=== PATIENT | male | born 1985 | race Caucasian/White ===

== ENCOUNTER → 2016-10-29 | Outpatient (CLI) | payer BC ==
[~2016-10-29] VITALS: Ht 193 cm; Wt 93.2 kg
[~2016-10-29] MED LIST: HYDROCODONE-AP1 EAC6 PO; HYSINGLA ER20 MG PO; HYSINGLA ER30 MG PO; KADIAN30 MG PO; NAPROSYN500 MG PO; PERCOCET 5-3251 EACH PO; WELLBUTRIN SR150 MG PO
--- NOTE | ~2016-10-29 | HPC ---
[facility] [place] [address] PAIN MANAGEMENT CONSULTATION Name: TAHIR SMITH Stacie Room #: REG Bird Treoj#: [id number] Admission: 10/29/16 Attend Phys: Brian Mcleod DO Discharge: Date of : 83 Report #: [id number] THIS REPORT FOR: //name// CC: [facility] physician/PCP Brian Mcleod The patient is a very pleasant 31-year-old gentleman being treated for left knee pain, chronic pain syndrome requiring complex medication management. Last seen in the pain clinic 09/03/2016. Chronic left knee issues, he had been scheduled for left knee surgery. Unfortunately, his has been diagnosed with breast cancer. This has put on hold the patient's immediate surgical issues. He has been diligently taking care of his , they have 4 children, age 10 through 17. 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 Urine drug screen at last visit was positive for hydrocodone, but also positive for methadone. I was unaware of the latter medication. We had a prolonged visit today reviewing current issues. When he first came to the clinic, he admitted that he had a very strong family history of narcotic habituation issues including both his father and brother having been incarcerated for federal narcotic infractions. Today, the patient notes "I am embarrassed to tell you that I have been on methadone now for several years." He states he has been stable on this medication, but with knee pain, he has had ongoing issues. He does continue to smoke and we counseled regarding this habituation issue and the fact that it is generally unhelpful. With the current issues of his 's cancer and likely surgery (currently she is undergoing radiation therapy) and the patient's pending knee surgery, they are trying to "quit tobacco together", essentially providing their own support group. I strongly encourage this. Today, he notes pain is about a 9/10, still on the left knee. 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 PHYSICAL EXAMINATION: Shows a 31-year-old gentleman, BMI is 25 kg/m2. Blood pressure 160/75, pulse 60, respirations are 18. Alert and oriented to person, place and time, judged to be a reasonable historian. Cranial nerves 2-12 are grossly intact. He does have some pupillary constriction. Notes no problems with constipation. Gait is good. No nystagmus is noted. He does have poor dentition. Rises from the chair using armrest. Gait is modestly antalgic favoring the left knee. No ballotable edema noted. ASSESSMENT: Chronic pain syndrome, history of opiate habituation, nicotine [facility] [address] [place] [address] PAIN MANAGEMENT CONSULTATION Name: TAHIR SMITH Room #: REG ED Trejo#: [id number] Admission: 10/29/16 Attend Phys: Brian Mcleod DO Discharge: Date of : 83 Report #: [id number] habituation, degenerative joint disease of the left knee, requiring complex medication management. RECOMMENDATIONS: Long discussion with the patient today about therapeutic option. Again, 1. Strongly recommend smoking cessation. 2. I have elected to continue current medication at least until surgery. Hysingla 30 mg 1 a day with hydrocodone 5/325 one tablet 3-4 times a day for breakthrough pain. Again, continue methadone through the methadone clinic unchanged. Our goal would be to wean off of hydrocodone after surgery. Greater than 25 minutes was spent with the patient with the majority of this time spent counseling the patient regarding current concerns and issues. We talked about anxiety and stress with his 's cancer diagnosis and young children. <ELECTRONICALLY SIGNED> By: Brian Mcleod DO 11/01/16 0750 [id number] 1034 Brian Mcleod DO /nt
[2016-10-29 07:57] VITALS: BP 162/75
== END ==
LOC: PAIN 07:03
DX: M25.562 Pain in left knee (principal); G89.4 Chronic pain syndrome

== ENCOUNTER → 2016-12-30 | Outpatient (CLI) | payer BC ==
[~2016-12-30] VITALS: Ht 193 cm; Wt 86.2 kg
[~2016-12-30] MED LIST changes: +METHADONE
--- NOTE | ~2016-12-30 | HPC ---
[facility] [address] [place] [address] PAIN MANAGEMENT CONSULTATION Name: TAHIR SMITH Stacie Room #: REG Bird Trejo#: [id number] Admission: 12/30/16 Attend Phys: Brian Mcleod DO Discharge: Date of : 84 Report #: [id number] THIS REPORT FOR: //name// CC: [facility] physician/PCP Brian Mcleod The patient is a 31-year-old gentleman being treated for complex medication management, history of opiate habituation, right knee DJD, requiring complex medication management. Last visit was 2 months ago. We continued the patient on his baseline medication, Cordelia 30 mg one a day, hydrocodone 5/325 one tablet 3-4 times a day, limit 100 tablets for 30 days. The patient has chronic pain in left knee. He has ACL tear and meniscal tear. He had been planning surgery, but this has been put on hold till June due to concurrent health issues with his . She has been diagnosed with metastatic breast cancer. She has completed radiation therapy. She is currently getting chemotherapy. They are planning surgery subsequent to the chemo. It sounds like her cancer may be metastatic. They have 4 young children, aged 10-17. Long discussion with the patient today about therapeutic options. He was seen from 09:10 to 09:35. Greater than 50% of the 25-minute visit was spent counseling the patient. He had prior been habituated to opiates, a fact we discussed at his original consultation. However, unbeknownst to me, has was beening maintained on methadone 70 mg a day at the [facility]. He had been forthright in noting that he had came from a family history rife with opiate concerns; his brother and father are actually in jail on opiate related charges. He had moved out of his home state and to get away from that influence. 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 He has been a dutiful and father. He returns to the pain clinic today, he notes he has continued to wean nicotine use, down to half a pack smoking a day. With the health issues with his and young family, he and his have started counseling. The patient notes that this has been helpful for him dealing with intercurrent stresses. Counseling has encouraged him with his smoking cessation as well. He notes pain in the left knee and low back, again, greater than 5 years, is 7/10 presently, worse on days when he has had a more aggressive activity at work. Otherwise, medications are continuing provide him sufficient analgesia to participate in activities of daily living. PHYSICAL EXAMINATION: Shows a 31-year-old gentleman, BMI is 23.1 kilograms per meter squared. Blood pressure is 103/68, pulse is 93, [place]ations [place] [address] [address] PAIN MANAGEMENT CONSULTATION Name: TAHIR SMITH Stacie Room #: REG Bird Trejo#: [id number] Admission: 12/30/16 Attend Phys: Brian Mcleod DO Discharge: Date of : 83 Report #: [id number] Alert and oriented to person, place, and time. Judged to be a reasonable historian. Rises from the chair using armrest, modestly antalgic gait. Left knee has a little ballottable edema. Ligaments are little bit lax anterior-posterior cruciate; medial and lateral collateral ligaments appear to be intact. Again, the patient has failed multiple injections including steroid and Synvisc injections from his orthopedist. 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 He is planning on getting the knee arthroscopy at that point. We reviewed the fact that opiate medications are being used to provide analgesia adequate to support activities of daily living, not attempting to achieve a specific pain score on the 0-10 Visual Analog Scale. The current opiate medications are providing sufficient analgesia to allow the patient to participate in activities of daily living. The patient is not exhibiting any aberrant behavior suggestive of drug diversion. The patient is not having any adverse reactions to medications. The patient is not suffering from daytime somnolence or mental acuity changes. The patient is managing opiate-induced constipation with appropriate yoiq-kin-apyoxqk agents and dietary considerations. The patient was counseled on concern for caution with operating a motor vehicle while using opiate medications. A physical exam was performed and the patient's functional status was evaluated. All patients with back pain were advised against the bed rest greater than 4 days and were advised to return to normal activities. Pain score assessment was noted and the treatment plan was reviewed with the patient. All current medications, both prescribed and OTC were reviewed and reconciled on the electronic medical record. Tobacco screening was accomplished and smoking cessation was advised when indicated. BMI was noted and diet/exercise modification was recommended for all patients following outside normal parameters. I reviewed with the patient today their responsibilities to safeguard prescription medications, reviewed their responsibility to utilize medications only as prescribed by the physician. They are to seek and receive pain medications only from 1 physician group ( [facility]). They are to use 1 pharmacy and keep the clinic informed if they change pharmacies. Their responsibilities include making followup visits in a timely fashion and to avoid abrupt discontinuation of medication usage. Their responsibilities further include bringing their medications (bottles from the pharmacy with residual pills) to the visit for possible confirmation of pill counts and the patient understands it is their responsibility to submit to random drug screens to ensure both that the medications prescribed are present, and that no other controlled substances are present. All prescriptions provided today were generated electronically. [facility] [address] [place] [address] PAIN MANAGEMENT CONSULTATION Name: TAHIR SMITH Stacie Room #: REG [facility]#: [id number] Admission: 12/30/16 Attend Phys: Brian Mcleod DO Discharge: Date of : 84 Report #: [id number] ASSESSMENT: Symptomatic degenerative joint disease, left knee in a gentleman with nicotine habituation and significant history of opiate habituation and tolerance. RECOMMENDATION: At last visit, we had reviewed his urine drug screen, which is positive for prescribed medications as well as methadone. This was when I first learned of his chronic methadone use. While he is at a supratherapeutic opiate load, considering the Cordelia 30 mg one a day and hydrocodone 5/325 one tablet 3-4 times a day, along with the methadone 70 mg daily, I remain hopeful that following knee surgery, we can start to wean his Cordelia and hydrocodone use. I will defer to his methadone clinic for ongoing management of his chronic opiate need. After a long discussion with the patient, we have elected to continue current medication unchanged. Follow up in 2 months for reevaluation. <ELECTRONICALLY SIGNED> By: Brian Mcleod DO 12/30/16 1349 0930 1338 Brian Mcleod DO /nt
[2016-12-30 09:10] VITALS: BP 103/68
== END | disposition home or self-care (01) ==
LOC: PAIN 12-24 06:52
DX: M17.11 Unilateral primary osteoarthritis, right knee (principal); F11.20 Opioid dependence, uncomplicated; F17.210 Nicotine dependence, cigarettes, uncomplicated

== ENCOUNTER → 2017-02-18 | Outpatient (CLI) | payer BC ==
[~2017-02-18] VITALS: Ht 193 cm; Wt 80.3 kg
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
[2017-02-18 09:57] VITALS: BP 149/93
== END | disposition home or self-care (01) ==
LOC: PAIN 07:16
DX: Z76.0 Encounter for issue of repeat prescription (principal); M25.562 Pain in left knee; G89.29 Other chronic pain; M17.12 Unilateral primary osteoarthritis, left knee; Z79.891 Long term (current) use of opiate analgesic; F17.210 Nicotine dependence, cigarettes, uncomplicated

== ENCOUNTER → 2017-04-14 | Outpatient (CLI) | payer BC ==
[~2017-04-14] VITALS: Ht 193 cm; Wt 83.7 kg
[~2017-04-14] MED LIST changes: +METHADONE PO
--- NOTE | ~2017-04-14 | HPC ---
[facility] [address] [address] PAIN MANAGEMENT CONSULTATION Name: TAHIR SMITH Stacie Room #: REG Bird Trejo#: [id number] Admission: 04/14/17 Attend Phys: Brian Mcleod DO Discharge: Date of : 83 Report #: [id number] THIS REPORT FOR: //name// CC: [facility] physician/PCP Brian Mcleod DATE OF SERVICE: 04/14/2017 DATE OF SERVICE: 04/14/2017 HISTORY OF PRESENT ILLNESS: The patient is a 31-year-old gentleman being treated for high risk complex medication management, DJD bilateral knees, left greater than right, with a history of nicotine habituation and opiate habituation and tolerance. Last visit, 02/18/2017, we had continued the patient at methadone clinic. He is receiving 70 mg a day, trying to wean down. I had started the patient on Cordelia 30 mg 1 a day and hydrocodone 5/325 one tablet 3-4 times a day, limit 100 tablets for 30 days, planning to wean this after left knee surgery, which has been put on hold due to the patient's 's cancer. 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 There are for young children. Unfortunately, today, he tells me through a tearful interview that his has metastatic breast cancer and he understands that she will likely not live long. We reviewed his social support services and circumstances, he does have a good community relationship with friends and yazdanism community in town. Both he and his come from out of state. He states his has a sister and brother who are not terribly involved, out of state. Again, the patient's family has significant psychosocial issues, strong family history of alcohol and drug abuse. He moved to [place] to get away from those influences. He remains functional, states medications are helping with pain. Rates his pain at 5 on the VAS. Again, ACL tear of the left knee surgery "on hold" while he helps his . 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 He does have a little laxity in the ligaments in the knee, but today, no ballotable edema, moderately antalgic gait. We reviewed the fact that opiate medications are being used to provide analgesia adequate to support activities of daily living, not attempting to achieve a specific pain score on the 0-10 Visual Analog Scale. The current opiate medications are providing sufficient analgesia to allow the patient to participate in activities of daily living. The patient is not exhibiting any aberrant behavior suggestive of drug diversion. The patient is not having any adverse reactions to medications. The patient is not suffering from daytime [facility] [address] [place] [address] PAIN MANAGEMENT CONSULTATION Name: TAHIR SMITH [facility] #[id number] Admission: 04/14/17 Attend Phys: Brian Mcleod DO Discharge: Date of : 83 Report #: [id number] somnolence or mental acuity changes. The patient is managing opiate-induced constipation with appropriate aceb-xyq-isdattl agents and dietary considerations. The patient was counseled on concern for caution with operating a motor vehicle while using opiate medications. A physical exam was performed and the patient's functional status was evaluated. All patients with back pain were advised against the bed rest greater than 4 days and were advised to return to normal activities. Pain score assessment was noted and the treatment plan was reviewed with the patient. All current medications, both prescribed and OTC were reviewed and reconciled on the electronic medical record. Tobacco screening was accomplished and smoking cessation was advised when indicated. BMI was noted and diet/exercise modification was recommended for all patients following outside normal parameters. I reviewed with the patient today their responsibilities to safeguard prescription medications, reviewed their responsibility to utilize medications only as prescribed by the physician. They are to seek and receive pain medications only from 1 physician group ( [facility]). They are to use 1 pharmacy and keep the clinic informed if they change pharmacies. Their responsibilities include making followup visits in a timely fashion and to avoid abrupt discontinuation of medication usage. Their responsibilities further include bringing their medications (bottles from the pharmacy with residual pills) to the visit for possible confirmation of pill counts and the patient understands it is their responsibility to submit to random drug screens to ensure both that the medications prescribed are present, and that no other controlled substances are present. All prescriptions provided today were generated electronically. ASSESSMENT: Degenerative joint disease, bilateral knees, left greater than right in a patient with opiate habituation history, requiring high risk complex medication management. RECOMMENDATION: I, again, discussed with the patient today about maintaining sobriety, being strong for his 4 children and . We elected to continue Cordelia 30 mg 1 a day, hydrocodone 5/325 100 tablets for 30 days. Follow up in 2 months for reevaluation, earlier if needed. I told him we can drain the knee if he gets acute swelling. <ELECTRONICALLY SIGNED> By: Brian Mcleod DO 04/15/17 1036 1224 0941 Brian Mcleod DO /nt
[2017-04-14 10:15] VITALS: BP 135/88
== END | disposition home or self-care (01) ==
LOC: PAIN 06:30
DX: M17.0 Bilateral primary osteoarthritis of knee (principal); F11.20 Opioid dependence, uncomplicated; F17.200 Nicotine dependence, unspecified, uncomplicated

== ENCOUNTER → 2017-07-08 | Outpatient (CLI) | payer BC ==
[~2017-07-08] VITALS: Ht 193 cm; Wt 86.6 kg
[~2017-07-08] MED LIST changes: +CYMBALTA30 MG PO; +NABUMETONE 750750 M1 PO; +TRAZODONE HCL100 MG PO
--- NOTE | ~2017-07-08 | HPC ---
[facility] [place] [address] PAIN MANAGEMENT CONSULTATION Name: TAHIR SMITH Stacie Room #: REG [facility] Maya#: [id number] Admission: 07/08/17 Attend Phys: Brian Mcleod DO Discharge: Date of : 84 Report #: [id number] THIS REPORT FOR: //name// CC: KRUNAL physician/PCP Brian Mcleod PAIN CLINIC NOTE SUBJECTIVE: The patient is a 32-year-old gentleman being treated for chronic left knee pain requiring high risk complex medication management. The patient was last seen in the pain clinic 04/14/2017, continued on Cordelia 30 mg 1 a day, hydrocodone 5/325 one tablet 3-4 a day, limit 100 tablets for 30 days. The patient has prior been habituated to opiates, has been attending the [facility], had been at 70 mg a day, he is now weaning down. He is down to 40 mg. Last urine drug screen 09/03/2016 was positive for prescribed medications. He returns to the pain clinic today noting pain is continuing. He works at [employer]. They have given him some work restrictions due to his knee. They are accommodating his disability, but he is anxious to move forward with ACL repair. This has been planned with Dr. Marquez in [place], likely in September. Surgery is somewhat had been put on hold due to the fact that the patient's has been diagnosed with breast cancer. They have 4 children, ages 17 to 11. The patient as one would expect is distraught with this. He is taking his responsibility to his family and his children very seriously. He is working hard at maintaining sobriety and weaning from methadone. He is anxious to move forward with surgery. Again, however, his primary concern at this point is caring for his . He notes pain as 7 on a VAS, sharp, stabbing, exacerbated with movement. Pain is centered in the left knee. He is otherwise generally a healthy gentleman. He continues to smoke daily and was counseled regarding this. He tells me his had purchased for him an electronic cigarette and I strongly encouraged him to quit smoking as well. We talked about nicotine use and habituation. I encouraged him to rotate from cigarettes to the e-cigarette and then we can gradually wean nicotine consumption. PHYSICAL EXAMINATION: Otherwise unchanged, pleasant 32-year-old gentleman, tearful throughout our interview. BMI is 23.3 kilograms per meter squared. Blood pressure is modestly elevated 135/91, pulse 85, respirations 16. Alert, oriented to person, place and time, judged to [place] [address] PAIN MANAGEMENT CONSULTATION Name: TAHIR SMITH Stacie Room #: [facility] [id number] Admission: 07/08/17 Attend Phys: Brian Mcleod DO Discharge: Date of : 84 Report #: [id number] from chair using armrest, modestly antalgic gait. Left knee does have a lax AC ligaments, tenderness with movement, nominal edema. We reviewed the fact that opiate medications are being used to provide analgesia adequate to support activities of daily living, not attempting to achieve a specific pain score on the 0-10 Visual Analog Scale. The current opiate medications are providing sufficient analgesia to allow the patient to participate in activities of daily living. The patient is not exhibiting any aberrant behavior suggestive of drug diversion. The patient is not having any adverse reactions to medications. The patient is not suffering from daytime somnolence or mental acuity changes. The patient is managing opiate-induced constipation with appropriate cgeu-tda-vyoevyu agents and dietary considerations. The patient was counseled on concern for caution with operating a motor vehicle while using opiate medications. A physical exam was performed and the patient's functional status was evaluated. All patients with back pain were advised against the bed rest greater than 4 days and were advised to return to normal activities. Pain score assessment was noted and the treatment plan was reviewed with the patient. All current medications, both prescribed and OTC were reviewed and reconciled on the electronic medical record. Tobacco screening was accomplished and smoking cessation was advised when indicated. BMI was noted and diet/exercise modification was recommended for all patients following outside normal parameters. I reviewed with the patient today their responsibilities to safeguard prescription medications, reviewed their responsibility to utilize medications only as prescribed by the physician. They are to seek and receive pain medications only from 1 physician group ( [facility]). They are to use 1 pharmacy and keep the clinic informed if they change pharmacies. Their responsibilities include making followup visits in a timely fashion and to avoid abrupt discontinuation of medication usage. Their responsibilities further include bringing their medications (bottles from the pharmacy with residual pills) to the visit for possible confirmation of pill counts and the patient understands it is their responsibility to submit to random drug screens to ensure both that the medications prescribed are present, and that no other controlled substances are present. All prescriptions provided today were generated electronically. ASSESSMENT: Chronic left knee pain secondary to internal derangement, opiate habituation and tolerance. RECOMMENDATIONS: Continue current medication as noted above, encouraged methadone wean from the [facility]. Buccal drug swab was accomplished [address] [address] PAIN MANAGEMENT CONSULTATION Name: TAHIR SMITH Room #: [facility]Darryl#: [id number] Admission: 07/08/17 Attend Phys: Brian Mcleod DO Discharge: Date of : 84 Report #: [id number] today. No aberrant behavior suggestive of drug diversion, simply complying with opiate consent to treat contract. <ELECTRONICALLY SIGNED> By: Brian Mcleod DO 07/21/17 0913 [id number] 0410 Brian Mcleod DO /nt
[2017-07-08 13:08] VITALS: BP 135/91
== END ==
LOC: PAIN 07:47
DX: M23.8X2 Other internal derangements of left knee (principal); F11.20 Opioid dependence, uncomplicated; E87.8 Other disorders of electrolyte and fluid balance, not elsewhere classified; Z79.899 Other long term (current) drug therapy

== ENCOUNTER → 2017-09-01 | Outpatient (CLI) | payer BC ==
[~2017-09-01] VITALS: Ht 182.9 cm; Wt 90.9 kg
--- NOTE | ~2017-09-01 | HPC ---
[facility] [address] [address] [address] PAIN MANAGEMENT CONSULTATION Name: TAHIR SMITH Stacie [facility] [id number] Admission: 09/01/17 Attend Phys: Brian Mcleod DO Discharge: Date of : 84 Report #: [id number] THIS REPORT FOR: //name// CC: KRUNAL physician/PCP Brian Mcleod The patient is a pleasant, yet tragic 32-year-old gentleman, typically treated for DJD, left knee; history of nicotine habituation and opiate abuse, requiring complex medication management. Last seen in pain clinic 07/08/2017. The patient has a long family history of opiate habituation and use. He actually left [facility] ([place]?) to get away from family issues. His brother and father are both in [place]p for narcotics related felonies. The patient moved to [place]. 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 He is . He has 2 young children. Unfortunately, his has widespread metastatic cancer. He has been stable on Cordelia 30 mg, hydrocodone 5/325, 100 tablets for 30 days. He has been pending ACL repair by Dr. Daniel, orthopedic surgeon in [place]. Unfortunately, with his 's acute illness, this has been put on hold. There is an error in my dictation from 07/08/2017. He had been stable at the methadone clinic at 70 mg methadone a day. He was weaning down. He was down to 50 mg at last visit (the chart says 40 mg). Today, he has weaned further. He is down now from 50 mg to 45 mg. Urine drug screen on 09/03/2016 was positive for prescribed medications. He returns to pain clinic today. He had a prolonged visit, he was seen from 9:50-10:20. He is tearful. He showed me a picture of his . Picture is obviously taken in "better days." Again, he has 2 teenage children, I believe 11 and 17 years of age. He is trying to maintain a functional home life with them. His is at home on hospice. He tells me that their furniture mover helper comes to the house weekly, and he has a good communication skill set. The patient is able to discuss his anxiety and depression with the furniture mover helper. From a pain standpoint, he notes pain is unchanged, 5-6 on a VAS due to a traumatic issues in the left knee. He continues to smoke, was counseled regarding same. BMI is 27.2 kilograms per meter squared. Vital signs are stable as noted in the EMR. He has not fallen in the last 3 months. Medicine list was reconciled. Functional assessment tool is 43/70. ASSESSMENT: Symptomatic degenerative joint disease, anterior cruciate ligament tear, left knee, nicotine habituation, chronic opiate use habituation and complex medication management along with situational depression. RECOMMENDATIONS: I had a long discussion with the patient today. Ultimately, we elected to start low dose Cymbalta 30 mg a day. Continue Cordelia 30 mg 1 a day, hydrocodone 5/325, limit 100 tablets for [address] [address] PAIN MANAGEMENT CONSULTATION Name: TAHIR SMITH Stacie Room #: REG [facility] Maya#: [id number] Admission: 09/01/17 Attend Phys: Brian Mcleod, Discharge: Date of : 84 Report #: [id number] Buccal swab was accomplished today. No aberrant behavior suggestive of drug diversion, simply complying with opiate consent to treat contract from about a year since her last random drug screen. It should be positive for morphine, hydrocodone, methadone. No other opiates or controlled substances should be there. <ELECTRONICALLY SIGNED> By: Brian Mcleod DO 09/07/17 0725 0704 1233 Brian Mcleod DO /nt
[2017-09-01 09:53] VITALS: BP 134/75
== END ==
LOC: PAIN 07:08
DX: M17.12 Unilateral primary osteoarthritis, left knee (principal); F11.90 Opioid use, unspecified, uncomplicated; F32.9 Major depressive disorder, single episode, unspecified; Z79.899 Other long term (current) drug therapy

== ENCOUNTER → 2017-10-31 | Outpatient (CLI) | payer BC ==
[~2017-10-31] VITALS: Ht 182.9 cm; Wt 91.1 kg
[~2017-10-31] MED LIST changes: -TRAZODONE HCL100 MG PO
--- NOTE | ~2017-10-31 | HPC ---
[facility] [place] [address] [place] [address] PAIN MANAGEMENT CONSULTATION Name: LUISTAHIR Stacie Room #: REG [facility] Trejo#: [id number] Admission: 10/31/17 Attend Phys: Brian Mcleod DO Discharge: Date of : 84 Report #: [id number] THIS REPORT FOR: //name// CC: KRUNAL physician/PCP Brian Mcleod The patient is a pleasant 32-year-old gentleman, he has a chronic opiate habituation by history, acute left knee DJD, requires surgical replacement. His medical history is compounded by the fact that his has metastatic cancer. They have 3 children, youngest being 11-year-old daughter and then 2 other teenage children. Last seen in the pain clinic on 09/01/2017, continued on baseline medication including Cordelia 30 mg 1 a day and hydrocodone 5/325 one tablet up to 4 times a day for breakthrough pain. The patient has been maintained through the Meth[facility]one Clinic, started out at a high dose, I think around 70 mg, last visit he was down to 45 mg, he is now down to 40 mg. He returns to pain clinic today. He just got back last week [facility] [place]. Apparently, they were doing some targeted biologic cancer drugs. He states his is now in a usp facility in [place]. 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 He notes his current pain is a 7 on a VAS. Again, he has DJD in the left knee and has been scheduled off and on for surgery with Dr. Daniel for ACL repair. Again, with his 's current illness, this has "been put on hold." PHYSICAL EXAMINATION: Otherwise, shows a pleasant 32-year-old gentleman, BMI is 27.2 kg/m2. Vital signs are stable as noted in the EMR. Subjective pain score is 7 on a VAS. He continues to smoke and was counseled regarding same. His opiate consent to treat contracted was signed on 12/30/2016. Last random drug screen on 09/01/2017, was negative for morphine and hydrocodone, he was about 10 days late. His prior office visit had been on July 08. Physical exam otherwise is unchanged, alert and oriented to person, place and time, judged to be a reasonable historian. He has a modestly antalgic gait favoring the left knee. Left knee does have a positive drawer test. Modest edema. He wears a brace when he is at work; however, during the day, he does not use the knee immobilization device. We reviewed the fact that opiate medications are being used to provide analgesia adequate to support activities of daily living, not attempting to achieve a specific pain score on the 0-10 Visual Analog Scale. The current opiate medications are providing sufficient analgesia to allow the patient to [address] [address] PAIN MANAGEMENT CONSULTATION Name: TAHIR SMITH Room #: REG [facility] Trejo#: [id number] Admission: 10/31/17 Attend Phys: Brian Mcleod DO Discharge: Date of : 84 Report #: [id number] participate in activities of daily living. The patient is not exhibiting any aberrant behavior suggestive of drug diversion. The patient is not having any adverse reactions to medications. The patient is not suffering from daytime somnolence or mental acuity changes. The patient is managing opiate-induced constipation with appropriate qdkc-alf-nfbwifq agents and dietary considerations. The patient was counseled on concern for caution with operating a motor vehicle while using opiate medications. A physical exam was performed and the patient's functional status was evaluated. All patients with back pain were advised against the bed rest greater than 4 days and were advised to return to normal activities. Pain score assessment was noted and the treatment plan was reviewed with the patient. All current medications, both prescribed and OTC were reviewed and reconciled on the electronic medical record. Tobacco screening was accomplished and smoking cessation was advised when indicated. BMI was noted and diet/exercise modification was recommended for all patients following outside normal parameters. I reviewed with the patient today their responsibilities to safeguard prescription medications, reviewed their responsibility to utilize medications only as prescribed by the physician. They are to seek and receive pain medications only from 1 physician group ( [facility]). They are to use 1 pharmacy and keep the clinic informed if they change pharmacies. Their responsibilities include making followup visits in a timely fashion and to avoid abrupt discontinuation of medication usage. Their responsibilities further include bringing their medications (bottles from the pharmacy with residual pills) to the visit for possible confirmation of pill counts and the patient understands it is their responsibility to submit to random drug screens to ensure both that the medications prescribed are present, and that no other controlled substances are present. All prescriptions provided today were generated electronically. ASSESSMENT: Left knee degenerative joint disease, chronic opiate habituation and tolerance by history. RECOMMENDATIONS: Continue current medication including hydrocodone 5/325 up to 4 a day for breakthrough pain, Cordelia, morphine extended release 30 mg 1 a day. I have taken the liberty of writing for 2 months of current medication. I asked the patient to return in 7 weeks, we will follow up at that time, likely repeat the random drug screen. <ELECTRONICALLY SIGNED> By: Brian Mcleod DO 11/02/17 0819 1202 1416 Brian Mcleod DO /alison
[2017-10-31 10:11] VITALS: BP 137/70
== END ==
LOC: PAIN 07:00
DX: M17.12 Unilateral primary osteoarthritis, left knee (principal); F11.90 Opioid use, unspecified, uncomplicated

== ENCOUNTER → 2017-12-16 | Outpatient (CLI) | payer BC ==
[~2017-12-16] VITALS: Ht 182.9 cm; Wt 89.6 kg
[~2017-12-16] MED LIST changes: +TRAZODONE HCL100 MG PO
--- NOTE | ~2017-12-16 | HPC ---
[facility] [place] [address] [place] [address] PAIN MANAGEMENT CONSULTATION Name: TAHIR SMITH Stacie Room #: REG [facility] Maya#: [id number] Admission: 12/16/17 Attend Phys: Brian Mcleod DO Discharge: Date of : 83 Report #: [id number] THIS REPORT FOR: //name// CC: KRUNAL physician/PCP Brian Mcleod HISTORY OF PRESENT ILLNESS: The patient is a very pleasant 32-year-old gentleman. I have treated him for chronic left knee pain. Status post left knee reconstruction, he does have an ACL tear and meniscus damage. He has been scheduled off and on for surgery for definitive repair of the knee. When I initially saw him in consultation in April 2016, it was noteworthy that he had a strong family history of alcohol habituation and that his brother and father have both been incarcerated for drug possession and sale. He had moved away from [place] to get away from that problematic environment. 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 He is and has been an attentive father of 4 children. He has been managed with Cordelia 30 mg 1 a day and hydrocodone 5/325 up to 4 a day. Unbeknownst to me, initially, he was on a methadone maintenance program, actually it is 70 mg of methadone a day. This has been weaned down to 40 mg a day. His definitive knee surgery had been put on hold about a year ago due to his having cancer. Tragically, the patient tells me today that his 4 days ago. She had wanted to pass in the near to her mother, family had journey to [place]. The patient just drove back today. He is understandably grieving. Fortunately, his had been placed on hospice care. The patient and his children have been in contact with a grief counselor and he intends to continue to follow through with counseling. We had a prolonged visit today from approximately 11:22-11:50. Greater than 50% of time spent counseling the patient. He notes the leg continues to be problematic. He is actually unable to give me a pain score presently. He states he "feels numb." He has continued to smoke and has been counseled regarding same. He has cut down though remains an everyday smoker. He is desirous of moving forward to getting his knee repaired perhaps in the fall. PHYSICAL EXAMINATION: [facility] [address] [place] [address] PAIN MANAGEMENT CONSULTATION Name: LUISTAHIR Stacie Room #: REG ED Trejo#: [id number] Admission: 12/16/17 Attend Phys: Brian Mcleod DO Discharge: Date of : 83 Report #: [id number] GENERAL: Shows a 32-year-old gentleman. VITAL SIGNS: BMI is 26.8 kg per meter squared. Vital signs are stable as noted in the EMR. NEUROLOGICAL: He is alert and oriented, though affect is a little flat. MUSCULOSKELETAL: Does have a positive drawers test left knee. He is not wearing his brace today. There is a little edema of the knee. He had been driving the past 8 hours. We reviewed the fact that opiate medications are being used to provide analgesia adequate to support activities of daily living, not attempting to achieve a specific pain score on the 0-10 Visual Analog Scale. The current opiate medications are providing sufficient analgesia to allow the patient to participate in activities of daily living. The patient is not exhibiting any aberrant behavior suggestive of drug diversion. The patient is not having any adverse reactions to medications. The patient is not suffering from daytime somnolence or mental acuity changes. The patient is managing opiate-induced constipation with appropriate rsqc-jir-wglbpss agents and dietary considerations. The patient was counseled on concern for caution with operating a motor vehicle while using opiate medications. A physical exam was performed and the patient's functional status was evaluated. All patients with back pain were advised against the bed rest greater than 4 days and were advised to return to normal activities. Pain score assessment was noted and the treatment plan was reviewed with the patient. All current medications, both prescribed and OTC were reviewed and reconciled on the electronic medical record. Tobacco screening was accomplished and smoking cessation was advised when indicated. BMI was noted and diet/exercise modification was recommended for all patients following outside normal parameters. I reviewed with the patient today their responsibilities to safeguard prescription medications, reviewed their responsibility to utilize medications only as prescribed by the physician. They are to seek and receive pain medications only from 1 physician group ( [facility]). They are to use 1 pharmacy and keep the clinic informed if they change pharmacies. Their responsibilities include making followup visits in a timely fashion and to avoid abrupt discontinuation of medication usage. Their responsibilities further include bringing their medications (bottles from the pharmacy with residual pills) to the visit for possible confirmation of pill counts and the patient understands it is their responsibility to submit to random drug screens to ensure both that the medications prescribed are present, and that no other controlled substances are present. All prescriptions provided today were generated electronically. ASSESSMENT: Left knee pain, status post prior reconstruction with current anterior cruciate ligament tear and meniscus damage requiring complex medication [facility] [address] [place] [address] PAIN MANAGEMENT CONSULTATION Name: TAHIR SMITH Room #: JOSE Trejo#: [id number] Admission: 12/16/17 Attend Phys: Brian Mcleod DO Discharge: Date of : 83 Report #: [id number] management in a gentleman with history of opiate habituation. Methadone [facility]. He is currently on FMLA from [employer] due to his 's health concerns. Planning on returning to work after his 's . Planning on again, hopefully getting his surgical repair with Dr. Daniel in the fall. RECOMMENDATIONS: 1. Long discussion with the patient today. He had prior been on trazodone 100 mg at bedtime from his psychiatrist. So, he has been seeing a grief counselor. He had unfortunately neglected to get his trazodone refilled. I will renew that today 100 mg 1 tablet at bedtime, 30 tablets with two refills. Strongly encouraged him to continue following up with his grief counselor. 2. We will renew his current medication including Cordelia 30 mg 1 a day and hydrocodone 5/325 at 4 a day. I have taken the liberty of writing for 2 months of current medication. We will have him follow up with Dr. Manuel Robert. With Dr. Robert's palliative care background, I think he would be caring position to help the patient through surgery. He understands that our goal will be to wean off of morphine and hydrocodone. Hopefully, continue to wean methadone with the [facility] over time. Again, counseled regarding smoking cessation. Discharged in good and stable condition after prolonged visit. <ELECTRONICALLY SIGNED> By: Brian Mcleod DO 12/19/17 0709 1221 2045 Brian Mcleod DO /nt
[2017-12-16 11:15] VITALS: BP 116/74
== END ==
LOC: PAIN 07:29
DX: G89.29 Other chronic pain (principal); M25.562 Pain in left knee; Z79.899 Other long term (current) drug therapy

== ENCOUNTER → 2018-02-10 | Outpatient (CLI) | payer BC ==
[~2018-02-10] VITALS: Ht 182.9 cm; Wt 88.9 kg
[2018-02-10 14:44] VITALS: BP 120/79
== END ==
LOC: PAIN 06:37
DX: M25.562 Pain in left knee (principal); F17.200 Nicotine dependence, unspecified, uncomplicated; Z79.891 Long term (current) use of opiate analgesic; Z79.899 Other long term (current) drug therapy

== ENCOUNTER → 2018-04-12 | Outpatient (CLI) | payer BC ==
[~2018-04-12] VITALS: Ht 182.9 cm; Wt 94.4 kg
--- NOTE | ~2018-04-12 | HPC ---
[facility] [address] [place] [address] PAIN MANAGEMENT CONSULTATION Name: TAHIR SMITH Room #: REG [facility] Maya#: [id number] Admission: 04/12/18 Attend Phys: Keven Barragan MD Discharge: Date of : 83 Report #: [id number] THIS REPORT FOR: //name// CC: KRUNAL physician/PCP Keven Barragan DATE OF SERVICE: 04/13/2018 FOLLOWUP COMPLAINT: Here for medication renewal. Plans to have left knee surgery. in 11/2017. FOLLOWUP HISTORY: The patient is a 32-year-old gentleman who has been followed in the Pain Clinic. He has chronic pain. He does have pain in his left knee. He is status post knee reconstruction. He does have continued pain and discomfort. He has been recovering from his 's recent . He moved here from [place] to get away from the family environment. 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 He has four children. He is . His unfortunately recently. He is left to raise the children alone. He still is grieving. The patient's in November. He feels that his current medications of methadone and hydrocodone continue to be helpful. He has returned today for renewal of his medications. He states that these medications are not clouding his judgment. He is able to think clearly. He is able to drive and conduct activities of daily living without interference from the medications. ALLERGIES: No known drug allergies. MEDICATIONS: Trazodone 100 mg at bedtime, Naprosyn 500 mg b.i.d., morphine sulfate 30 mg, hydrocodone 5/325 one tablet 4 times daily as needed. Methadone is down to 30 mg daily from 70. Wellbutrin 150 mg. PQRS: 1. History of osteoarthritis involving the left knee. The patient is not being treated for rheumatoid arthritis. 2. Height 6 feet 0 inches, weight 208 pounds, BMI is 28.2. 3. Vital signs: Blood pressure 117/68, pulse 77, respiratory rate 16, room air saturation 98%. 4. Pain intensity 5-6 today, raises to the level of 8-9 at times. 5. Fall risk. The patient has not fallen in the last 3 months. 6. Blood thinner. The patient is not on a blood thinning medication. 7. Hypertension. The patient is not being treated for hypertension. 8. Opioid therapy greater than 6 weeks. The patient gets his medication from one source, the Pain Clinic. 9. Risk assessment tool with the use of opioid medications, 0. 10. Functional assessment tool. 11. Recreational drug use. The patient [place] [address] PAIN MANAGEMENT CONSULTATION Name: TAHIR SMITH Room #: REG ED Trejo#: [id number] Admission: 04/12/18 Attend Phys: Keven Barragan MD Discharge: Date of : 83 Report #: [id number] this juncture. 12. Tobacco: The patient has smoked for the last 25 years. He is trying to decrease his tobacco use. I spoke with the patient about 3 minutes regarding the benefits of cessation of tobacco. 13. Alcohol: The patient denies frequent use of alcohol. PHYSICAL EXAMINATION: GENERAL: The patient is a well-developed, well-nourished white male. Appears his stated age. He is alert and oriented x 3. Affect is appropriate. He feels somewhat depressed when thinking about his . HEENT: Normocephalic, atraumatic. Extraocular muscles intact. Sclerae nonicteric. Mucous membranes are moist. NECK: Good range of motion without bruits or adenopathy. HEART: Regular rate. S1, S2. ABDOMEN: Nontender. Bowel sounds present. LUNGS: Clear to auscultation without rhonchi or rales. EXTREMITIES: Upper extremity muscle strength is judged to be 5/5 for the major muscle groups. MUSCULOSKELETAL: Without significant scoliosis, kyphosis, or lordosis. He does have some pain and discomfort radiating down into the left knee. Muscle strength overall in the major muscle groups in the lower extremity is 5/5. IMPRESSION: 1. Chronic pain secondary to left knee with prior reconstruction with current anterior cruciate ligament tear in the meniscus damaged, requiring complex medication management. 2. History of opioid habitation. Methadone maintenance from the Pain Clinic. 3. The patient has been on FMLA from [place] secondary to his 's . He has four children, age 16, age 15, age 12, and age 11; three boys, one girl. The patient's recently . 4. Surgical repair with Dr. Daniel this fall. RECOMMENDATIONS: We discussed treatment options with the patient. We will continue with his current medical regimen. A script for his medications has been renewed. The patient states that he keeps his medications in a guarded area. He does have children. He feels that these medications are helpful and enable him to engage in activities of daily living. He is taking the medication as prescribed. We will renew his medications. A script for Cordelia 30 mg daily, [place] 5/325 one p.o. q.i.d., Naprosyn 500 mg b.i.d., trazodone 100 mg at bedtime has been written. [address] [address] PAIN MANAGEMENT CONSULTATION Name: TAHIR MSITH Room #: [facility] Maya#: [id number] Admission: 04/12/18 Attend Phys: Keven Barragan MD Discharge: Date of : 83 Report #: [id number] We would like to thank you for letting us participate in his care. We hope he continues to improve. <ELECTRONICALLY SIGNED> By: Keven Barragan MD 05/01/18 1124 [id number] Keven Barragan MD /nt
[2018-04-12 11:01] VITALS: BP 117/68
== END ==
LOC: PAIN 09:41
DX: M25.562 Pain in left knee (principal); Z79.899 Other long term (current) drug therapy

== ENCOUNTER → 2018-06-02 | Outpatient (CLI) | payer BC ==
[~2018-06-02] VITALS: Ht 182.9 cm; Wt 96.4 kg
[~2018-06-02] MED LIST changes: +METHADONE HCL 110 M1 PO
--- NOTE | ~2018-06-02 | HPC ---
[facility] [place] [address] PAIN MANAGEMENT CONSULTATION Name: TAHIR SMITH Room #: REG [facility].#: [id number] Admission: 06/02/18 Attend Phys: Marga Paiz Discharge: Date of : 83 Report #: [id number] THIS REPORT FOR: //name// CC: Marga Paiz [facility] physician/PCP Chon Barragan MD CHIEF COMPLAINT: Chronic pain, left knee, status post knee reconstruction. HISTORY OF PRESENT ILLNESS: The patient returns today for followup of his pain medication. He tells me that his pain is 6/10, mostly in the left knee, worse with walking, kneeling, standing, which he has to do at his job at the [employer]. He tells me that he has been weaning off his methadone, which he gets from the [facility]. He is on 40 mg a day of that. We prescribed Cordelia 30 mg once a day and [place] 5/325, which he takes up to 4 times a day. The patient tells me he is also off his trazodone and Wellbutrin. He is working very diligently to decrease these medicines. His goal is to have his ACL repaired sometime next year. He is waiting for insurance settlement from his 's passing and also a bonus from work, so he can put that aside from when he is off work since he has 4 children at home and he will need care to help with himself and them while he is recovering from his surgery. The patient has a plan definitely in place to decrease his methadone further and to be totally off of that before this surgery. He is also as I said off his Wellbutrin and his trazodone. He is very alert, positive attitude today, working towards these goals. The patient is here requesting his refills. ALLERGIES: No known drug allergies. CURRENT LIST OF MEDICATIONS: methadone 40 mg daily, Cordelia 30 mg daily, hydrocodone 5/325 up to 4 a day, naproxen 500 mg twice a day. PQRS: 1. Osteoarthritis of his left knee, not being treated for rheumatoid arthritis. 2. Height is 6 feet, weight is 212, BMI is 28.8. 3. Vital signs: Blood pressure 125/105, pulse is 68, respirations 14, oxygen sat is 97%. 4. Pain score is 6/10. 5. Denies dizziness. Does not need help walking or standing and has not fallen in the last 3 months. 6. No blood thinners and no hypertension, thus blood pressure slightly elevated today. 7. Opioid therapy is greater than 6 weeks, an opioid signed contract on the chart. 8. His risk assessment tool is low. Functional assessment tool is 43/70. 9. He has used recreational drug use in the past, but not in the last 3 months. He does smoke currently every day, about a half a pack and does not use alcohol. [address] [address] PAIN MANAGEMENT CONSULTATION Name: LUISTAHIR CORREIA Stacie Room #: JOSE Trejo#: [id number] Admission: 06/02/18 Attend Phys: Marga Paiz Discharge: Date of : 83 Report #: [id number] We did check the [place] prescription monitoring system. He is filling appropriate timeframe on his hydrocodone and his morphine. Methadone is not reportable through where he gets his medicine, so that is not on there. The patient tells me he safeguards his medicine since he does have children in the house: PHYSICAL EXAMINATION: GENERAL: The patient is a well-developed, well-nourished white male who appears his stated age. He is alert and oriented x 3. Affect is appropriate. He feels more positive in his outlook than he has in a long time he tells me. HEENT: Normocephalic, atraumatic. Extraocular muscles are intact. Mucous membranes are moist. MUSCULOSKELETAL: Upper extremity strength is judged to be 5/5 on major muscle groups. Lower extremity, he does have pain radiating from his left knee down. Muscle strength overall in his lower extremity is to be 5/5. He does not have scoliosis, kyphosis or lordosis. IMPRESSION: 1. Chronic pain secondary to left knee with prior reconstruction, current anterior cruciate ligament tear in the meniscus requiring complex medical management. 2. History of opioid habituation, [facility]. We reviewed the fact that opiate medications are being used to provide analgesia adequate to support activities of daily living, not attempting to achieve a specific pain score on the 0-10 Visual Analog Scale. The current opiate medications are providing sufficient analgesia to allow the patient to participate in activities of daily living. The patient is not exhibiting any aberrant behavior suggestive of drug diversion. The patient is not having any adverse reactions to medications. The patient is not suffering from daytime somnolence or mental acuity changes. The patient is managing opiate-induced constipation with appropriate yllw-qrd-xgsvqlb agents and dietary considerations. The patient was counseled on concern for caution with operating a motor vehicle while using opiate medications. A physical exam was performed and the patient's functional status was evaluated. All patients with back pain were advised against the bed rest greater than 4 days and were advised to return to normal activities. Pain score assessment was noted and the treatment plan was reviewed with the patient. All current medications, both prescribed and OTC were reviewed and reconciled on the electronic medical record. Tobacco screening was accomplished and smoking cessation was advised when indicated. BMI was noted and diet/exercise modification was recommended for all patients following outside normal parameters. [address] [address] PAIN MANAGEMENT CONSULTATION Name: TAHIR SMITH [facility] [id number] Admission: 06/02/18 Attend Phys: Marga Paiz Discharge: Date of : 83 Report #: [id number] I reviewed with the patient today their responsibilities to safeguard prescription medications, reviewed their responsibility to utilize medications only as prescribed by the physician. They are to seek and receive pain medications only from 1 physician group ( [facility]). They are to use 1 pharmacy and keep the clinic informed if they change pharmacies. Their responsibilities include making followup visits in a timely fashion and to avoid abrupt discontinuation of medication usage. Their responsibilities further include bringing their medications (bottles from the pharmacy with residual pills) to the visit for possible confirmation of pill counts and the patient understands it is their responsibility to submit to random drug screens to ensure both that the medications prescribed are present, and that no other controlled substances are present. All prescriptions provided today were generated electronically. PLAN: 1. We discussed treatment with this patient today. We encouraged him to continue to decrease his methadone and applauded him for his efforts so far in decreasing. The patient's goal is to be completely off of it before his surgery sometime next year, no date has been set. The patient has also weaned himself off his antidepressants and has been doing very well. 2. We did discuss briefly about surgery and narcotic use and the goal is to use the lowest most effective dose prior to surgery when he has his ACL repaired, so that the pain medicine will be more effective afterwards. The patient is agreeable with this plan of care and will work towards decreasing as much as possible. He tells me he would like to be off all narcotics eventually. 3. Script was given for Cordelia 30 mg once a day, #30 with today and 4-week release; hydrocodone 5/325, #120, release for today and 4-week; and naproxen 500 mg, #60 with 1 refill. 4. We did discuss the CDC guidelines with the patient. The prescriptions we give him are right at 50 MMEs. The methadone puts him quite significantly higher, but he is working towards the goal to wean off the methadone, so we have chosen to continue all of his medications today through this clinic. The patient is seen today in collaboration with Dr. Sandeep Barragan. <ELECTRONICALLY SIGNED> By: Marga Paiz 06/05/18 0723 [id number] Marga Paiz /alison
[2018-06-02 08:18] VITALS: BP 125/105
== END ==
LOC: PAIN 07:08
DX: M25.562 Pain in left knee (principal); G89.29 Other chronic pain; Z79.891 Long term (current) use of opiate analgesic; Z94.89 Other transplanted organ and tissue status

== ENCOUNTER → 2018-07-28 | Outpatient (CLI) | payer BC ==
[~2018-07-28] VITALS: Ht 193 cm; Wt 101.5 kg
[2018-07-28 08:21] VITALS: BP 136/71
--- NOTE | 2018-07-28 08:25 | NUR ---
Pain Clinic Assessment: 1. History of Osteoarthritis: Not Applicable History of Rheumatoid Arthritis: Not Applicable 2. Height: 6 ft. 4 in. 193.0 cm. Weight: 223.8 lb. oz. 101.515 kg. Patient's BMI: 27.3 3. Vital Signs: BP: 136/71 Pulse: 76 Resp: 20 Temp: 02 Sat: 98 ECG Mon: 4. Pain Intensity: 5-6 5. Fall Risk: Dizziness: N Needs help standing or walking: N Fallen in the last 3 months: N Fall risk comments: 6. Patient on Blood Thinner: None 7. History of Hypertension: N 8. Opioid Therapy greater than 6 weeks: Y Opiate Contract Signed: 12/30/16 9. Risk Assessment Tool Provided: LOW RISK 0/3 10. Functional Assessment Tool: 11. Recreational Drug Use: Past greater than 3 mos Drug Type: Tobacco Use: Current Every Day Smoker Tobacco Type: Amount or Packs/day: How Many Years: Alcohol Use: No Frequency: Quant:
--- NOTE | 2018-07-31 07:09 | HPC ---
[facility] [place] [address] PAIN MANAGEMENT CONSULTATION Name: TAHIR SMITH Stacie Room #: REG [facility] Maya#: [id number] Admission: 07/28/18 Attend Phys: Marga Paiz Discharge: Date of : 83 Report #: [id number] THIS REPORT FOR: //name// CC: Marga Paiz [facility] physician/PCP DATE OF SERVICE: 07/28/2018 CHIEF COMPLAINT: Chronic pain in his left knee, status post knee reconstruction. HISTORY OF PRESENT ILLNESS: The patient returns today to the pain clinic for refill of his pain medication. He tells me that his pain score is 5-6 most of the time; worse with walking, kneeling, standing; the medication or distraction does help it. He is working hard to decrease his methadone and has decreased from 40 to 30 over the past 2 months in preparation for another knee surgery. After he is off his methadone, he will try to decrease his hydrocodone slightly to aid with his postoperative pain. He tells me that he was off work during the holidays as a shutdown from work. He was able to go to [place] with his family to see his parents. He said that was good for his children since this is the first holiday since his , was good for them not to be in the house. He said they all enjoyed having some time away during that difficult time this year. The patient tells me that he has had these fatty tumors that have showed up on his anterior thigh bilaterally and one on his right buttock. I will look at those too as well as filling his medications today. CURRENT LIST OF ALLERGIES: No known drug allergies. CURRENT LIST OF MEDICATIONS: Naproxen 500 mg twice a day. Methadone is 30 mg daily, Cordelia 30 mg daily, hydrocodone 5/325 up to 4 times a day. PQRS: 1. He has a history of osteoarthritis in his left knee, not being treated for rheumatoid arthritis. 2. Height is 6 feet 4 inches, weight is 223. BMI is 27.3. 3. Vital signs: Blood pressure 136/71, pulse is 76, respirations 20, oxygen sat is 98, pain score is 5/6. 4. Fall risk. Denies dizziness, does not need help walking or standing. Has not fallen in the last 3 months. 5. He is not on any blood thinners or antihypertensive medicines. 6. His opiate therapy is greater than 6 weeks, therefore an opioid signed contract is on the chart. 7. His risk assessment tool is low and his functional is 43-70. 8. Recreational drug use in the past. Currently smokes every day some tobacco [address] [address] PAIN MANAGEMENT CONSULTATION Name: LUISTAHIR Stacie Room #: REG [facility] Trejo#: [id number] Admission: 07/28/18 Attend Phys: Marga Paiz Discharge: Date of : 83 Report #: [id number] and does not drink alcohol. 9. Did check the prescription monitoring system, which is appropriate for his medications. He is due to fill his hydrocodone today. We will check a drug screen on him today and oral screen will be done. His last one was a year ago. He tells me he does safeguard his medications since he has children in the house. PHYSICAL EXAMINATION: GENERAL: This is a well-developed, well-nourished white gentleman who appears his stated age. He is alert and orientated x 3. His affect is appropriate. He does not seem depressed today. HEENT: Normocephalic, atraumatic. Extraocular eye muscles are intact. Mucous membranes are moist. MUSCULOSKELETAL: Upper extremity strength judged to be 5/5 in all of his muscle groups. Lower extremity, pain in his left knee. Muscle strength overall in his lower extremity is judged to be 5/5. 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 The patient tells me that he has had these for about 5-6 months. IMPRESSION: 1. Chronic pain secondary to left knee with prior reconstruction. Currently, anterior cruciate ligament tear in the meniscus requiring complex medical management. 2. History of opioid habituation and methadone maintenance from a [facility]one Clinic. We reviewed the fact that opiate medications are being used to provide analgesia adequate to support activities of daily living, not attempting to achieve a specific pain score on the 0-10 Visual Analog Scale. The current opiate medications are providing sufficient analgesia to allow the patient to participate in activities of daily living. The patient is not exhibiting any aberrant behavior suggestive of drug diversion. The patient is not having any adverse reactions to medications. The patient is not suffering from daytime somnolence or mental acuity changes. The patient is managing opiate-induced constipation with appropriate olln-uzg-exgmgmd agents and dietary considerations. The patient was counseled on concern for caution with operating a motor vehicle while using opiate medications. A physical exam was performed and the patient's functional status was evaluated. All patients with back pain were advised against the bed rest greater than 4 days and were advised to return to normal activities. Pain score assessment was noted and the treatment plan was reviewed with the patient. All current medications, both prescribed and OTC were reviewed and reconciled on the electronic medical record. Tobacco screening was accomplished and smoking cessation was advised when indicated. BMI was noted and diet/exercise modification was recommended for all patients following outside normal [facility] [address] [place] [address] PAIN MANAGEMENT CONSULTATION Name: TAHIR SMITH Room #: REG ED Trejo#: [id number] Admission: 07/28/18 Attend Phys: Marga DESEAN Paiz Discharge: Date of : 83 Report #: [id number] parameters. I reviewed with the patient today their responsibilities to safeguard prescription medications, reviewed their responsibility to utilize medications only as prescribed by the physician. They are to seek and receive pain medications only from 1 physician group ( [facility]). They are to use 1 pharmacy and keep the clinic informed if they change pharmacies. Their responsibilities include making followup visits in a timely fashion and to avoid abrupt discontinuation of medication usage. Their responsibilities further include bringing their medications (bottles from the pharmacy with residual pills) to the visit for possible confirmation of pill counts and the patient understands it is their responsibility to submit to random drug screens to ensure both that the medications prescribed are present, and that no other controlled substances are present. All prescriptions provided today were generated electronically. PLAN: 1. We discussed treatment options today. He continues to decrease his methadone use, is currently at 30 mg a day, which he again has decreased 10 mg in 2 months, which is getting preparation for his upcoming surgery. We will give refills for his Cordelia 30 mg 1 p.o. daily for today and 4 weeks and [place] 5/325 #120 for today and 4 weeks as well as naproxen 50 mg b.i.d. with #160 with one additional refill. 2. I had Dr. Barragan come and look at the patient's complaint of fatty tumors on his thighs and one on his right buttock. The patient tells me that he has had these for 5-[address] Barragan is in agreement with me that they look like they are fatty lipoma. We instructed the patient if they continue to get bigger and bothersome, that he may need to have them removed, but at this time, they are quite small and not bothersome to him. 3. We did collect an oral specimen for drug screen today since it had been a year since his last screen. The patient is agreeable with this plan of care. He will follow up in 2 months' time. The patient seen in collaboration today with Dr. Sandeep Barragan. <ELECTRONICALLY SIGNED> By: Marga Paiz 07/31/18 0709 [id number] Marga Paiz /alison
== END ==
LOC: PAIN 06:48
DX: M25.562 Pain in left knee (principal); G89.29 Other chronic pain; Z79.891 Long term (current) use of opiate analgesic; Z79.899 Other long term (current) drug therapy

== ENCOUNTER → 2018-09-14 | Outpatient (CLI) | payer BC ==
[~2018-09-14] VITALS: Ht 193 cm; Wt 100.2 kg
--- NOTE | ~2018-09-14 | HPC ---
[facility] [place] [address] PAIN MANAGEMENT CONSULTATION Name: TAHIR SMITH [id number] Admission: 09/14/18 ������������������ Attend Phys: Marga Paiz Discharge: ������������������ Date of : 83 Report #: [id number] THIS REPORT FOR: //name// CC: Marga Paiz [facility] physician/PCP DATE OF SERVICE: 09/14/2018 CHIEF COMPLAINT: Chronic left knee pain status post knee reconstruction. HISTORY OF PRESENT ILLNESS: The patient returns to the pain clinic today for followup for his medications. He tells me he has a date for his knee surgery, which is 03/26/2019. He is working towards decreasing his medications and stopping smoking before that appointment. He tells me his plan is to be off his methadone within 2 months and was wondering how the best way to stop smoking is. He tells me his pain score today is 4/5, worse with walking, standing, kneeling. Medications are very helpful as well as distraction. All this pain is located only in his left knee. ALLERGIES: No known drug allergies. CURRENT LIST OF MEDICATIONS: Morphine sulfate 30 mg daily, hydrocodone 5/325 up to 4 times a day, naproxen 500 mg b.i.d., methadone 30 mg daily. PQRS: 1. He has a history of osteoarthritis in his left knee. He is not being treated for rheumatoid arthritis. 2. He is 6 feet 4 inches, weight is 220, BMI is 26.9. Vital signs 106/82, pulse is 80, respirations 14, oxygen sat is 98. 3. Pain score is 4-5/10. 4. Fall risk. Denies dizziness. Does not need help walking or standing, not fallen in the last 3 months. 5. The patient is not on any blood thinners. He does take medicines for hypertension. 6. Opioid therapy is greater than 6 weeks. Therefore, no opiate signed contract is on the chart. 7. Risk assessment tool is low. His functional assessment is 43/70. 8. Recreational drug use, greater than 3 months ago. He does smoke about a pack of cigarettes a day. We did talk about smoking cessation and how to decrease that or stopping all at once. The patient does not drink alcohol. We checked the prescription monitoring system. The patient is filling appropriately, though his medications are off. He is filling his hydrocodone on different dates and is Cordelia, so we will try to get those back on schedule. The patient did have a drug screen in July. It did not show any hydrocodone, though he tells us he had taken it all before his appointment. He is positive [address] [address] PAIN MANAGEMENT CONSULTATION Name: TAHIR SMITH Stacie Room #: REG [facility] Trejo#: [id number] Admission: 09/14/18 ������������������ Attend Phys: Marga Paiz Discharge: ������������������ Date of : 83 Report #: [id number] for his methadone and his Cordelia. We addressed that he is not to take his hydrocodone early. He is supposed to take it all as scheduled as needed. PHYSICAL EXAMINATION: GENERAL: This is a well-developed, well-nourished white gentleman, who appears his stated age. He is alert and orientated. His affect is appropriate. Seems slightly depressed today due to the recent anniversary of his 's passing. HEENT: Normocephalic, atraumatic. Extraocular eye muscles are intact. Mucous membranes are moist. MUSCULOSKELETAL: Upper extremity strength judged to be 5/5 in all major muscle groups. Lower extremity: He does complain of left knee pain. His muscle strength, though overall is 5/5 in all of his muscle groups. IMPRESSION: 1. Chronic pain secondary to left knee post-reconstruction with the current anterior cruciate ligament tear with an upcoming surgery. 2. History of opioid habituation and [facility] 3. Underwent an opioid agreement due to high risk medications. We reviewed the fact that opiate medications are being used to provide analgesia adequate to support activities of daily living, not attempting to achieve a specific pain score on the 0-10 Visual Analog Scale. The current opiate medications are providing sufficient analgesia to allow the patient to participate in activities of daily living. The patient is not exhibiting any aberrant behavior suggestive of drug diversion. The patient is not having any adverse reactions to medications. The patient is not suffering from daytime somnolence or mental acuity changes. The patient is managing opiate-induced constipation with appropriate aayp-[id number]-[id number] agents and dietary considerations. The patient was counseled on concern for caution with operating a motor vehicle while using opiate medications. A physical exam was performed and the patient's functional status was evaluated. All patients with back pain were advised against the bed rest greater than 4 days and were advised to return to normal activities. Pain score assessment was noted and the treatment plan was reviewed with the patient. All current medications, both prescribed and OTC were reviewed and reconciled on the electronic medical record. Tobacco screening was accomplished and smoking cessation was advised when indicated. BMI was noted and diet/exercise modification was recommended for all patients following outside normal parameters. I reviewed with the patient today their responsibilities to safeguard prescription medications, reviewed their responsibility to utilize medications only as prescribed by the physician. They are to seek and receive pain medications only from 1 physician group ([facility]). They are to use [address] [place], [place] [address] [address] PAIN MANAGEMENT CONSULTATION Name: TAHIR SMITH Room #: REG [facility]#: [id number] Admission: 09/14/18 ������������������ Attend Phys: Marga Paiz Discharge: ������������������ Date of : 83 Report #: [id number] pharmacy and keep the clinic informed if they change pharmacies. Their responsibilities include making followup visits in a timely fashion and to avoid abrupt discontinuation of medication usage. Their responsibilities further include bringing their medications (bottles from the pharmacy with residual pills) to the visit for possible confirmation of pill counts and the patient understands it is their responsibility to submit to random drug screens to ensure both that the medications prescribed are present, and that no other controlled substances are present. All prescriptions provided today were generated electronically. PLAN: 1. We discussed treatment options with the patient today. The patient is due to fill his hydrocodone now, but not his Cordelia. The patient tells me that he has taken some more hydrocodone than his scheduled due to working outside in the cold is making his pain worse. I had a long discussion with the patient today, stating he needs to try to decrease his medication and not increase them. He is not able to fill his hydrocodone until next week. I am also trying to get his medicines back on schedule, filling them at the same time. Therefore, today, it was decided to give him one month of Cordelia 30 mg tablets, #30 to release in 4 weeks. He is due to fill that around 10/02/2018. 2. I gave him 2 hydrocodone scripts , #120. First one he is able to fill next week, the second one he can fill in 4 weeks' time. He was instructed to make his hydrocodone last until his appointment in October. The patient verbalizes understanding. He will work harder to not take more. He will try to decrease his hydrocodone. The patient is trying to decrease his narcotics to get ready for his reconstructive surgery of his knee in March. 3. The patient continues to get his 30 mg of [facility]. He tells me his goal is to be off his methadone within 2 months when he returns in October. The patient's current MME with this methadone is [address] Robert did come and examined the patient's knee today. The patient did complain of pain significantly in the right knee when Dr. Robert was present. The patient was seen in collaboration with Dr. Robert today who, as stated above, did see him today. The patient will follow up in 2 months' time. ��������������������������������������������� ���������������������������������������� By: ��������������������������������������������� [id number] Marga Paiz /alison
[2018-09-14 09:34] VITALS: BP 106/82
--- NOTE | 2018-09-14 09:45 | NUR ---
Pain Clinic Assessment: 1. History of Osteoarthritis: Not Applicable History of Rheumatoid Arthritis: Not Applicable 2. Height: 6 ft. 4 in. 193.0 cm. Weight: 220.8 lb. oz. 100.154 kg. Patient's BMI: 26.9 3. Vital Signs: BP: 106/82 Pulse: 80 Resp: 14 Temp: 02 Sat: 98 ECG Mon: 4. Pain Intensity: 4-5 5. Fall Risk: Dizziness: N Needs help standing or walking: N Fallen in the last 3 months: N Fall risk comments: 6. Patient on Blood Thinner: None 7. History of Hypertension: N 8. Opioid Therapy greater than 6 weeks: Y Opiate Contract Signed: 12/30/16 9. Risk Assessment Tool Provided: LOW RISK 0/3 10. Functional Assessment Tool: 11. Recreational Drug Use: Past greater than 3 mos Drug Type: Tobacco Use: Current Every Day Smoker Tobacco Type: Cigarettes Amount or Packs/day: 1 PACK How Many Years: Alcohol Use: No Frequency: Quant:
== END ==
LOC: PAIN 07:12
DX: M25.562 Pain in left knee (principal); G89.29 Other chronic pain; Z79.899 Other long term (current) drug therapy; Z79.891 Long term (current) use of opiate analgesic

== ENCOUNTER → 2018-11-29 | Outpatient (CLI) | payer BC ==
[~2018-11-29] VITALS: Ht 193 cm; Wt 100.4 kg
--- NOTE | ~2018-11-29 | HPC ---
[facility] [place] [address] PAIN MANAGEMENT CONSULTATION Name: TAHIR SMITH Stacie Room #: REG [facility] Maya#: [id number] Admission: 11/29/18 ������������������ Attend Phys: Keven Barragan MD Discharge: ������������������ Date of : 83 Report #: [id number] THIS REPORT FOR: //name// CC: [facility] physician/PCP Keven Barragan DATE OF SERVICE: 11/29/2018 CHIEF COMPLAINT: Here for medication renewal and I am planning on having my left knee ACL repair done in the future. HISTORY: The patient is a 33-year-old gentleman who has been followed in the pain clinic because of chronic pain. He has had pain in his left knee for a while. He is status post knee reconstruction. He states that he has had some arthroscopic surgeries in the past. He continues to move forward in life. His within the last year or so. He does have a number of children. Continues to work at [employer]. States that his children are getting out of school in next couple of weeks. He has been using methadone, hydrocodone to help control his pain and discomfort. He does get [facility]. He is aware that the use of opioids can affect postoperative pain control. As a result, he is working to decrease his methadone dose. After his surgery, he has desired to decrease his other opioid medications as well. Still he is able to think clearly. Does not have any problem with his medications. He has returned today for renewal of his medications. ALLERGIES: No known drug allergies. CURRENT MEDICATIONS: Morphine sulfate 30 mg daily, hydrocodone 5/325 up to 4 times daily, Naprosyn 500 mg, methadone 30 mg daily. PAIN CLINIC ASSESSMENT/PQRS: 1. History of osteoarthritis involving his left knee. He is not being treated for rheumatoid arthritis. 2. Height 6 feet 4 inches, weight 222 pounds, BMI is 27. 3. Vital Signs: Blood pressure 133/90, pulse 73, respiratory rate 16, room air saturation 99%. 4. Pain intensity 12/25. 5. Fall risk. The patient has not fallen in the last 3 months. 6. Blood thinner. The patient is not on a blood thinning medication. 7. Hypertension. The patient is not being treated for hypertension. 8. Opioids greater than 6 weeks. The patient receives his medication through the pain clinic as well as through the [facility]. 9. Risk assessment tool, low 0/3 for opioid use. 10. Functional assessment tool 43/70. 11. Recreational drug use. The patient denies use of recreational drugs. 12. Tobacco: The patient does smoke cigarettes and smoked for the last 25 years. He is [place] [address] PAIN MANAGEMENT CONSULTATION Name: TAHIR SMITH Room #: REG ED Trejo#: [id number] Admission: 11/29/18 ������������������ Attend Phys: Keven Barragan MD Discharge: ������������������ Date of : 83 Report #: [id number] 13. Alcohol: The patient denies frequent use of alcoholic beverages. PHYSICAL EXAMINATION: GENERAL: The patient is a well-developed, well-nourished white male. Appears his stated age. He is alert and oriented x 3. His affect is appropriate. Speech is . HEENT: Normocephalic, atraumatic. Extraocular eye muscles intact. The patient is edentulous. NECK: With good range of motion, bruits, without adenopathy. HEART: Regular rate. S1, S2. ABDOMEN: Nontender. Bowel sounds present. LUNGS: Clear to auscultation. EXTREMITIES: Upper extremity muscle strength judged to be 5/5 for the major muscle groups in the upper extremity. The patient without significant scoliosis, kyphosis or lordosis. The patient has pain and discomfort in his left knee. Muscle strength in the right leg 5/5, 5-5 for the left knee secondary to the pain. IMPRESSION: 1. Chronic pain secondary to left knee and prior reconstructions with current anterior cruciate ligament tear and meniscus damage requiring complex medical management. 2. History of opioid habituation. Methadone [facility] from [facility]. 3. The patient has 4 children, ages 16, 15, 12, and 11. Three boys and one girl, which he is taking care of. RECOMMENDATIONS: We discussed treatment options with the patient. We have explained the benefits of smoking cessation. The patient has been counseled that decrease use of nicotine prior to and after his surgery would promote healing. The patient is aware that opioid medications can make postoperative pain control more difficult. He is at this point, decreasing his use of methadone. . After he has his ACL repair done he would like to continue to decrease his opioid use. A script for his medications has been written. He will continue with the Cordelia 30 mg daily, hydrocodone 5/325 one p.o. q.i.d., 5 mg tablets as well as Naprosyn 500 mg b.i.d. We would like to thank you for letting us participate in his care. We hope he continues to improve. ��������������������������������������������� ���������������������������������������� By: ��������������������������������������������� 0924 [id number] Keven Barragan MD /[facility]
[2018-11-29 08:51] VITALS: BP 133/90
--- NOTE | 2018-11-29 08:54 | NUR ---
Pain Clinic Assessment: 1. History of Osteoarthritis: Not Applicable History of Rheumatoid Arthritis: Not Applicable 2. Height: 6 ft. 4 in. 193.0 cm. Weight: 221.4 lb. oz. 100.427 kg. Patient's BMI: 27.0 3. Vital Signs: BP: 133/90 Pulse: 72 Resp: 16 Temp: 02 Sat: 99 ECG Mon: 4. Pain Intensity: 6 5. Fall Risk: Dizziness: N Needs help standing or walking: N Fallen in the last 3 months: N Fall risk comments: 6. Patient on Blood Thinner: None 7. History of Hypertension: N 8. Opioid Therapy greater than 6 weeks: Y Opiate Contract Signed: 12/30/16 9. Risk Assessment Tool Provided: LOW RISK 0/3 10. Functional Assessment Tool: 43/70 11. Recreational Drug Use: Past greater than 3 mos Drug Type: Tobacco Use: Current Every Day Smoker Tobacco Type: Cigarettes Amount or Packs/day: UNDER 1 PK How Many Years: Alcohol Use: No Frequency: Quant:
== END ==
LOC: PAIN 06:42
DX: M25.562 Pain in left knee (principal); Z79.899 Other long term (current) drug therapy; Z79.891 Long term (current) use of opiate analgesic

== ENCOUNTER → 2019-01-24 | Outpatient (CLI) | payer BC ==
[~2019-01-24] VITALS: Ht 193 cm; Wt 102.8 kg
[~2019-01-24] MED LIST changes: +HYDROCODON-ACE1 EAC7 PO
--- NOTE | ~2019-01-24 | HPC ---
[facility] [place] [address] PAIN MANAGEMENT CONSULTATION Name: TAHIR SMITH Room #: REG [facility] Maya#: [id number] Admission: 01/24/19 ������������������ Attend Phys: Keven Barragan MD Discharge: ������������������ Date of : 83 Report #: [id number] THIS REPORT FOR: //name// CC: [facility] physician/PCP Keven Barragan DATE OF SERVICE: 01/24/2019 CHIEF COMPLAINT: "Here for medication renewal, I am going to have surgery in 03/2019." FOLLOWUP HISTORY: The patient is a 33-year-old gentleman who has been followed in the pain clinic because of chronic pain. He has pain in his left knee. He has had pain for about 5 years. He has a torn ACL, torn meniscus. He states that he is going to undergo surgery to improve this in a few weeks. He is decreasing his opioid use. He is aware that elevated morphine levels will make his recovery more problematic. He has been taking the medications as prescribed. Rates his pain as a 6-7/10. He is happy at this point with the new arrival. He has a new granddaughter. They have named her after his last year. This has given him some sebastian. ALLERGIES: No known drug allergies. CURRENT MEDICATIONS: Morphine sulfate 30 mg daily, hydrocodone 5/325 one p.o. every 4-6 hours, Naprosyn 500 mg, methadone 30 mg daily. PAIN CLINIC ASSESSMENT/PQRS: 1. The patient has pain involving the left knee. He is not being treated for rheumatoid arthritis. 2. Height 6 feet 4 inches, weight 226 pounds, BMI is 27.6. 3. Vital Signs: Blood pressure 133/90, pulse 87, respiratory rate 16, room air saturation 98%. 4. Pain intensity 6-10. 5. Fall history: The patient has not fallen in the last 3 months. 6. Blood thinner. The patient is not on blood thinning medication. 7. Hypertension. The patient is not being treated for hypertension. 8. Opioid greater than 6 weeks. 9. Risk assessment tool, low for opioid use. 10. Functional assessment tool 43/. 11. Recreational drug use. The patient denies use of recreational drugs. 12. Alcohol: The patient denies use of alcoholic beverages. 13. Tobacco: The patient has decreased his tobacco use and is down to 1/2 pack of cigarettes per day. He is happy about this new change. PHYSICAL EXAMINATION: GENERAL: The patient is a well-developed, well-nourished [place] [address] PAIN MANAGEMENT CONSULTATION Name: TAHIR SMITH Room #: REG [facility]#: [id number] Admission: 01/24/19 ������������������ Attend Phys: Keven Barragan MD Discharge: ������������������ Date of : 83 Report #: [id number] his stated age. He is alert and oriented x 3. His affect is appropriate. Speech is slow. HEENT: Normocephalic, atraumatic. Extraocular eye muscles intact. Sclerae nonicteric. Mucous membranes are moist. NECK: Without adenopathy or JVD. HEART: Regular rate. S1, S2. ABDOMEN: Nontender. Bowel sounds present. LUNGS: Clear to auscultation. Upper extremity muscle strength judged to be 5/5 for the major muscle groups in the upper extremity. Lower extremity, the patient has pain and discomfort involving his left knee. Right leg, muscle strength is 5/5. IMPRESSION: 1. Chronic pain secondary to left knee and prior reconstruction with recurrent anterior cruciate ligament tear and meniscus damage requiring complex medical management. 2. History of opioid habituation, methadone maintenance for pain control at the methadone clinic. 3. The patient has 4 children, ages 16, 15, 12 and 11. 4. Recently, he has a new grandchild. RECOMMENDATIONS: We discussed treatment options with the patient. At this juncture, we will continue for his medication management. A script for his medications has been rewritten. The patient is aware of the problems with opioids. He is aware that 70,000 people last year as a result of overdose. He states that he is decreasing his methadone use, so that he is able to have less pain and discomfort. He keeps his medications in a guarded area given his young children. He feels that these medications have been helpful and continued to be helpful and enable him to engage in activities he would not be able to without their use. He will call us if he has any concerns. He is looking forward to undergoing a knee surgery to help with repair his ACL on the left side. This is scheduled for 03/2019. We would like to thank you for letting us participate in his care. We hope he continues to improve. ��������������������������������������������� ���������������������������������������� By: ��������������������������������������������� [id number] Keven Barragan MD /alison
[2019-01-24 08:23] VITALS: BP 133/90
--- NOTE | 2019-01-24 08:27 | NUR ---
Pain Clinic Assessment: 1. History of Osteoarthritis: Not Applicable History of Rheumatoid Arthritis: Not Applicable 2. Height: 6 ft. 4 in. 193.0 cm. Weight: 226.6 lb. oz. 102.785 kg. Patient's BMI: 27.6 3. Vital Signs: BP: 133/90 Pulse: 87 Resp: 16 Temp: 02 Sat: 98 ECG Mon: 4. Pain Intensity: 6-7 5. Fall Risk: Dizziness: N Needs help standing or walking: N Fallen in the last 3 months: N Fall risk comments: 6. Patient on Blood Thinner: None 7. History of Hypertension: N 8. Opioid Therapy greater than 6 weeks: Y Opiate Contract Signed: 12/30/16 9. Risk Assessment Tool Provided: LOW RISK 0/3 10. Functional Assessment Tool: 11. Recreational Drug Use: Past greater than 3 mos Drug Type: Tobacco Use: Current Every Day Smoker Tobacco Type: Cigarettes Amount or Packs/day: 1/2 DAY How Many Years: Alcohol Use: No Frequency: Quant:
== END ==
LOC: PAIN 06:52
DX: G89.29 Other chronic pain (principal); M25.562 Pain in left knee; Z79.899 Other long term (current) drug therapy; Z79.891 Long term (current) use of opiate analgesic

== ENCOUNTER → 2019-03-21 | Outpatient (CLI) | payer BC ==
[~2019-03-21] VITALS: Ht 193 cm; Wt 98.8 kg
--- NOTE | ~2019-03-21 | HPC ---
[facility] [place] [address] PAIN MANAGEMENT CONSULTATION Name: TAHIR SMITH Stacie Room #: REG [facility] ShavonneJenny#: [id number] Admission: 03/21/19 ������������������ Attend Phys: Keven Barragan MD Discharge: ������������������ Date of : 83 Report #: [id number] THIS REPORT FOR: //name// CC: [facility] physician/PCP Keven Barragan CHIEF COMPLAINT: Here for medication renewal, things are going relatively well. HISTORY: The patient is a 33-year-old gentleman who has been followed in the Pain Clinic because of chronic pain. As you may recall, he has some pain and discomfort involving his knees. He is considering surgery on his knees in the near future. He feels his medications have been helpful. He plans on decreasing his opioid use in the near future after the surgery. He is scheduling an ACL repair of his left knee. He describes his pain as a 5-6 at this point. Walking, kneeling, and standing can be problematic. Notes that his medications as well as distraction are helpful. The patient was hit in the chest at work. States that he suffered a sternum fracture. ALLERGIES: No known drug allergies. CURRENT MEDICATIONS: Morphine sulfate 30 mg daily, hydrocodone 5/325 one p.o. q. 4-6 hours, Naprosyn 500 mg, and methadone 30 mg daily. PAIN CLINIC ASSESSMENT/PQRS: 1. The patient has pain involving his left knee. He is not being treated for rheumatoid arthritis. 2. Height 6 feet 4 inches, weight 217 pounds, BMI is 26. 3. Vital Signs: Blood pressure 108/77, pulse 76, respiratory rate 14, room air saturation is 99%. 4. Pain intensity, 5-6/10. 5. Fall history: The patient has not fallen in the last 3 months. 6. Blood thinner. The patient is not on a blood thinning medication. 7. Hypertension. The patient is not being treated for hypertension. 8. Opioids greater than 6 weeks. The patient receives medication from one source the Pain Clinic. 9. Risk assessment tool, low for opioid use. 10. Functional assessment tool, 43/. 11. Recreational drug use. The patient denies use of alcoholic beverages. 12. Tobacco: The patient smokes 1/4 pack of cigarettes per day, has smoked for the last 23 years. PHYSICAL EXAMINATION: GENERAL: The patient is a well-developed, well-nourished white male. Appears his stated age. He is alert and oriented x 3. His affect is appropriate. Speech is fluent. HEENT: Normocephalic, atraumatic. Extraocular eye muscles intact. Sclerae nonicteric. [place]uc[place] [address] PAIN MANAGEMENT CONSULTATION Name: LUISTAHIR L Room #: REG ED Trejo#: [id number] Admission: 03/21/19 ������������������ Attend Phys: Keven Barragan MD Discharge: ������������������ Date of : 83 Report #: [id number] NECK: Without adenopathy. HEART: Regular rate. ABDOMEN: Nontender. The patient has some pain and discomfort in the sternal area. Status post trauma to the chest with a sternal fracture. LUNGS: Clear to auscultation. EXTREMITIES: Upper extremity muscle strength judged to be 5/5 for the major muscle groups in the upper extremity. The patient has pain and discomfort in the left leg secondary to disruption of the ACL. IMPRESSION: 1. Chronic pain secondary to left knee pain and prior reconstruction with recurrent anterior cruciate ligament tear and meniscus damage requiring complex medical management with opioids. 2. History of opioid habituation, methadone maintenance for pain control at the Pain Clinic. 3. History of 4 children, ages 16, 15, 12 and 11 -- last year or so. 4. Recent new grandchild. 5. Chest pain after trauma to the sternum at work. RECOMMENDATIONS: We discussed treatment options with the patient. At this juncture, we will continue with his medications. A script for his medications has been rewritten. The patient is aware that opioid medications can be helpful with pain, but can be problematic in some patients. Patients can develop problems with addiction as well as less pain control secondary to tolerance. He feels his medications are working reasonably well. He keeps his medications out of the reach of his young children. We will continue with his current medical regimen. A script for renewal of his medications of Naprosyn 500 mg 1 p.o. b.i.d., hydrocodone 5/325 1 p.o. q.i.d., total of 120 and morphine 30 mg slow release have been rewritten. We would like to thank you for letting us participate in his care. We hope he continues to improve. ��������������������������������������������� ���������������������������������������� By: ��������������������������������������������� [id number] Keven Barragan MD /alison
[2019-03-21 09:06] VITALS: BP 108/77
--- NOTE | 2019-03-21 09:25 | NUR ---
Pain Clinic Assessment: 1. History of Osteoarthritis: Not Applicable History of Rheumatoid Arthritis: Not Applicable 2. Height: 6 ft. 4 in. 193.0 cm. Weight: 217.8 lb. oz. 98.794 kg. Patient's BMI: 26.5 3. Vital Signs: BP: 108/77 Pulse: 76 Resp: 14 Temp: 02 Sat: 99 ECG Mon: 4. Pain Intensity: 5-6 5. Fall Risk: Dizziness: N Needs help standing or walking: N Fallen in the last 3 months: N Fall risk comments: 6. Patient on Blood Thinner: None 7. History of Hypertension: N 8. Opioid Therapy greater than 6 weeks: Y Opiate Contract Signed: 12/30/16 9. Risk Assessment Tool Provided: LOW RISK 0/3 10. Functional Assessment Tool: 11. Recreational Drug Use: Past greater than 3 mos Drug Type: Tobacco Use: Current Every Day Smoker Tobacco Type: Cigarettes Amount or Packs/day: 1/4 How Many Years: 23 Alcohol Use: No Frequency: Quant:
== END ==
LOC: PAIN 06:45
DX: M25.562 Pain in left knee (principal); Z79.899 Other long term (current) drug therapy; Z79.891 Long term (current) use of opiate analgesic

== ENCOUNTER → 2019-05-16 | Outpatient (CLI) | payer BC ==
[~2019-05-16] VITALS: Ht 193 cm; Wt 101.7 kg
[2019-05-16 13:52] VITALS: BP 117/57
--- NOTE | 2019-05-16 14:04 | NUR ---
Pain Clinic Assessment: 1. History of Osteoarthritis: DENIES History of Rheumatoid Arthritis: DENIES 2. Height: 6 ft. 4 in. 193.0 cm. Weight: 224.2 lb. oz. 101.697 kg. Patient's BMI: 27.3 3. Vital Signs: BP: 117/57 Pulse: 76 Resp: 14 Temp: 02 Sat: 97 ECG Mon: 4. Pain Intensity: 5 5. Fall Risk: Dizziness: N Needs help standing or walking: N Fallen in the last 3 months: N Fall risk comments: 6. Patient on Blood Thinner: None 7. History of Hypertension: N 8. Opioid Therapy greater than 6 weeks: Y Opiate Contract Signed: 12/30/16 9. Risk Assessment Tool Provided: LOW RISK 0/3 10. Functional Assessment Tool: 43/ 11. Recreational Drug Use: Past greater than 3 mos Drug Type: Tobacco Use: Current Every Day Smoker Tobacco Type: Cigarettes Amount or Packs/day: 0.5 How Many Years: Alcohol Use: No Frequency: Quant:
--- NOTE | 2019-05-17 09:01 | HPC ---
[facility] [address] [address] PAIN MANAGEMENT CONSULTATION Name: TAHIR SMITH [facility] #: [facility] [id number] Admission: 05/16/19 Attend Phys: Marga Paiz Discharge: Date of : 83 Report #: [id number] THIS REPORT FOR: //name// CC: Marga Paiz [facility] physician/PCP DATE OF SERVICE: 05/16/2019 CHIEF COMPLAINT: Chronic pain in his bilateral knees, left greater than right. HISTORY OF PRESENT ILLNESS: This is a 34-year-old gentleman who returns to the Pain Clinic today for his chronic pain. We have been seeing him for quite some time for his left knee pain especially; he tore his ACL and meniscus, and he is awaiting approval from the insurance company to hopefully have the surgery later this year by Dr. Smith. In the meantime, he has been slowly decreasing his methadone; he is currently at 10 mg a day via the [facility]. His goal is to be completely off this medication by 06/17 as well as to stop smoking; he is currently on half-a-pack a day, which is a significant decrease for him. The patient reports a pain score today of 5/10, again mostly in this left knee. It is a sharp, throbbing, aching pain that is worse with walking and standing. He is very active at his job at [employer], which requires him to be on his feet at all times. He finds the medication of morphine sulfate and hydrocodone very beneficial. Today, he would like refills of this medication. ALLERGIES: No known drug allergies. CURRENT LIST OF MEDICATIONS: Cordelia 30 mg daily, hydrocodone 5/325 up to 4 times a day, naproxen 500 mg b.i.d. and methadone 10 mg daily. PQRS: 1. He has osteoarthritis in his bilateral knees. Denies any rheumatoid arthritis. 2. Height is 6 feet 4 inches, weight is 224, BMI is 27. 3. Vital signs 117/57, pulse is 76, respirations 14, oxygen sat is 97. 4. Pain score is 5/10. 5. Denies dizziness, does not need help walking or standing, has not fallen in the last 3 months. 6. He is not on any blood thinners or medicine for hypertension. His risk assessment tool is low. Functional assessment is 43/70. 7. Recreational drug use in the past. He is a current smoker of half-a-pack of cigarettes a day and denies any alcohol use. According to the prescription monitoring system, the patient is filling appropriately and is not quite due for his medication refill, but is due next week in a timely fashion. There is a drug screen on the chart that is [address] [address] PAIN MANAGEMENT CONSULTATION Name: LUISTAHIR L Room #: REG CL Maya#: [id number] Admission: 05/16/19 Attend Phys: Marga Paiz Discharge: Date of : 83 Report #: [id number] appropriate as well. PHYSICAL EXAMINATION: GENERAL: This is a well-developed, well-nourished white male who appears his stated age, placing his current pain score at 5/10. HEENT: Normocephalic, atraumatic. Extraocular eye muscles are intact. Mucous membranes are moist. EXTREMITIES: Upper extremity strength judged to be 5/5 in all major muscle groups. He has pain in his left knee secondary to disruption of his ACL and meniscus, is very localized. He walks with a slightly antalgic gait. IMPRESSION: 1. Chronic pain secondary to left knee pain, prior reconstruction with recurrent anterior cruciate ligament tear and meniscus damage, requiring medications. 2. History of opioid habituation, methadone maintenance slowly decreasing. 3. Osteoarthritis. 4. We reviewed the fact that opiate medications are being used to provide analgesia adequate to support activities of daily living, not attempting to achieve a specific pain score on the 0-10 Visual Analog Scale. The current opiate medications are providing sufficient analgesia to allow the patient to participate in activities of daily living. The patient is not exhibiting any aberrant behavior suggestive of drug diversion. The patient is not having any adverse reactions to medications. The patient is not suffering from daytime somnolence or mental acuity changes. The patient is managing opiate-induced constipation with appropriate ynkz-bio-tuofwdr agents and dietary considerations. The patient was counseled on concern for caution with operating a motor vehicle while using opiate medications. A physical exam was performed and the patient's functional status was evaluated. All patients with back pain were advised against the bed rest greater than 4 days and were advised to return to normal activities. Pain score assessment was noted and the treatment plan was reviewed with the patient. All current medications, both prescribed and OTC were reviewed and reconciled on the electronic medical record. Tobacco screening was accomplished and smoking cessation was advised when indicated. BMI was noted and diet/exercise modification was recommended for all patients following outside normal parameters. I reviewed with the patient today their responsibilities to safeguard prescription medications, reviewed their responsibility to utilize medications only as prescribed by the physician. They are to seek and receive pain medications only from 1 physician group ( [facility]). They are to use 1 pharmacy and keep the clinic informed if they change pharmacies. Their responsibilities include making followup visits in a timely fashion and to avoid abrupt discontinuation of medication usage. Their responsibilities further include bringing their medications (bottles from the pharmacy with residual pills) to the visit for possible confirmation of pill counts and the patient [facility] [address] [place] [address] PAIN MANAGEMENT CONSULTATION Name: TAHIR SMITH Room #: REG [facility] [id number] Admission: 05/16/19 Attend Phys: Marga Paiz Discharge: Date of : 83 Report #: [id number] understands it is their responsibility to submit to random drug screens to ensure both that the medications prescribed are present, and that no other controlled substances are present. All prescriptions provided today were generated electronically. PLAN: 1. We discussed treatment options with the patient today. The patient has a goal of stopping smoking and stopping his methadone by 06/17. I congratulated him on the hard work that he has done to get off of both of these addictive medicines. 2. The patient is awaiting insurance approval to have his ACL meniscus repair by Dr. Og Smith. He is hopeful to have that approval before the end of the year. 3. Scripts given today for his Cordelia 30 mg, #30 for today and 4-week release and hydrocodone 5/325, #120 for today and 4-week release. 4. Script also given for his naproxen 500 mg b.i.d., #60 with 1 additional refill. He takes these in-between his hydrocodone medications with no GI upset. He does not take any Aleve or ibuprofen while taking this medication. 5. According to the CDC guidelines, his morphine mEq without his methadone is 50 MMEs per day. The patient is seen every 2 months here in the clinic. The patient seen by Dr. Sandeep Barragan, who collaborated care today. <ELECTRONICALLY SIGNED> By: Marga Paiz 05/17/19 0901 [id number] Marga Paiz /nt
== END ==
LOC: PAIN 05-15 14:06
DX: M25.561 Pain in right knee (principal); M25.562 Pain in left knee; M19.90 Unspecified osteoarthritis, unspecified site; Z87.891 Personal history of nicotine dependence

== ENCOUNTER → 2019-07-25 | Outpatient (CLI) | payer BC ==
[~2019-07-25] VITALS: Ht 193 cm; Wt 100.6 kg
[~2019-07-25] MED LIST changes: +NAPROXEN500 MG PO
[2019-07-25 10:29] VITALS: BP 110/75
--- NOTE | 2019-07-25 10:40 | NUR ---
Pain Clinic Assessment: 1. History of Osteoarthritis: DENIES History of Rheumatoid Arthritis: DENIES 2. Height: 6 ft. 4 in. 193.0 cm. Weight: 221.8 lb. oz. 100.608 kg. Patient's BMI: 27.0 3. Vital Signs: BP: 110/75 Pulse: 78 Resp: 16 Temp: 02 Sat: 100 ECG Mon: 4. Pain Intensity: 7 5. Fall Risk: Dizziness: N Needs help standing or walking: N Fallen in the last 3 months: N Fall risk comments: 6. Patient on Blood Thinner: None 7. History of Hypertension: N 8. Opioid Therapy greater than 6 weeks: Y Opiate Contract Signed: 12/30/16 9. Risk Assessment Tool Provided: LOW RISK 0/3 10. Functional Assessment Tool: 43 11. Recreational Drug Use: Past greater than 3 mos Drug Type: Tobacco Use: Current Every Day Smoker Tobacco Type: Amount or Packs/day: 1/2 pack How Many Years: 26 Alcohol Use: No Frequency: Quant:
--- NOTE | 2019-07-26 15:57 | HPC ---
[facility] [place] [address] PAIN MANAGEMENT CONSULTATION Name: TAHIR SMITH Room #: REG [facility].#: [id number] Admission: 07/25/19 Attend Phys: Marga Paiz Discharge: Date of : 83 Report #: [id number] THIS REPORT FOR: //name// CC: Marga Paiz [facility] physician/PCP Chon Barragan MD DATE OF SERVICE: 07/25/2019 CHIEF COMPLAINT: Chronic pain in his bilateral knees, left greater than the right. HISTORY OF PRESENT ILLNESS: This is a 34-year-old gentleman who returns to the pain clinic today for refill of his Cordelia and hydrocodone. He reports that he is unable to secure a date for his surgery for his ACL and meniscus repair. He had to go up slightly on his methadone therapy because he was experiencing some slight withdrawal symptoms. His surgeon wants him off his methadone prior to having his surgery, so therefore that has been postponed. The patient does report that he is taking 12 mg of methadone this week. He will decrease back to 10 mg next week and hopefully by the time we see him in 2 months, he should be off his methadone entirely. He does report a pain score of 7/10 today, which is slightly elevated. He reports that he has been out of his hydrocodone for a couple of days due to the holidays and scheduling difficulties. His pain is located in his bilateral knees, worse on his left. It is a throbbing, aching pain that is worse with walking and standing. He reports he does continue to work though he does have increased pain. Today, he would like refills of his medications. ALLERGIES: No known drug allergies. CURRENT LIST OF MEDICATIONS: Hydrocodone 5/325 q.i.d., naproxen 500 mg b.i.d. Cordelia 30 mg daily and methadone 12 mg daily. PQRS: 1. He has osteoarthritic changes in his knees. Denies any rheumatoid arthritis. 2. Height is 6 feet 4 inches, weight is 221. BMI is 27. 3. Vital signs 110/75, pulse is 78, respirations 16, oxygen sat is 100. 4. Pain score is 7/10. 5. Denies dizziness, does not need help walking or standing, has not fallen in the last 3 months. 6. The patient is not on any blood thinners, but does not take medicine for hypertension. 7. Opioid therapy is greater than 6 weeks; therefore, an opiate signed contract is on the chart. Risk assessment tool is low. Functional assessment is 43/70[place] [address] PAIN MANAGEMENT CONSULTATION Name: TAHIR SMITH Room #: REG [facility] Maya#: [id number] Admission: 07/25/19 Attend Phys: Marga Paiz Discharge: Date of : 83 Report #: [id number] 8. Recreational drug use in the past. He currently smokes about a half a pack of cigarettes a day, does not drink any alcohol. According to the prescription monitoring system, he last filled his morphine 06/27/2019. He is due to fill that medication today and his hydrocodone was last filled in May. He is past due to fill that medication. He does go to the [facility] on a daily basis and takes a scheduled methadone from there. We have a recent drug screen on the chart, which we will repeat at his next appointment. PHYSICAL EXAMINATION: GENERAL: This is a well-developed, well-nourished 34-year-old gentleman who appears his stated age, placing his current pain score at 7/10. HEENT: Normocephalic, atraumatic. Extraocular eye muscles are intact. Mucous membranes are moist. MUSCULOSKELETAL: Upper extremity strength is equal and symmetrical at 5/5. His lower extremity strength is judged to be 5/5 as well. He has pain in his left knee. He walks with a slightly antalgic gait. No edema noted in his left knee. IMPRESSION: 1. Chronic pain secondary to left knee pain prior reconstruction and has recurrent anterior cruciate ligament tear. 2. History of opioid habituation, methadone maintenance slowly decreasing. 3. Osteoarthritis. 4. Complex medical management under terms of written opioid agreement. We reviewed the fact that opiate medications are being used to provide analgesia adequate to support activities of daily living, not attempting to achieve a specific pain score on the 0-10 Visual Analog Scale. The current opiate medications are providing sufficient analgesia to allow the patient to participate in activities of daily living. The patient is not exhibiting any aberrant behavior suggestive of drug diversion. The patient is not having any adverse reactions to medications. The patient is not suffering from daytime somnolence or mental acuity changes. The patient is managing opiate-induced constipation with appropriate [id number]-swwgenw agents and dietary considerations. The patient was counseled on concern for caution with operating a motor vehicle while using opiate medications. A physical exam was performed and the patient's functional status was evaluated. All patients with back pain were advised against the bed rest greater than 4 days and were advised to return to normal activities. Pain score assessment was noted and the treatment plan was reviewed with the patient. All current medications, both prescribed and OTC were reviewed and reconciled on the electronic medical record. Tobacco screening was accomplished and smoking cessation was advised when indicated. BMI was noted and diet/exercise modification was recommended for all patients following outside normal [address] [place] [address] PAIN MANAGEMENT CONSULTATION Name: TAHIR SMITH [facility] #: [facility] [id number] Admission: 07/25/19 Attend Phys: Marga DESEAN Paiz Discharge: Date of : 83 Report #: [id number] parameters. I reviewed with the patient today their responsibilities to safeguard prescription medications, reviewed their responsibility to utilize medications only as prescribed by the physician. They are to seek and receive pain medications only from 1 physician group ( [facility]). They are to use 1 pharmacy and keep the clinic informed if they change pharmacies. Their responsibilities include making followup visits in a timely fashion and to avoid abrupt discontinuation of medication usage. Their responsibilities further include bringing their medications (bottles from the pharmacy with residual pills) to the visit for possible confirmation of pill counts and the patient understands it is their responsibility to submit to random drug screens to ensure both that the medications prescribed are present, and that no other controlled substances are present. All prescriptions provided today were generated electronically. PLAN: 1. We discussed treatment options with the patient today. I encouraged the patient to continue his weaning off his methadone. He is hopeful to be off prior to our next appointment in 2 months. 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 2. We will refill his Cordelia 30 mg once a day, quantity 30 and one 4-week refill given as well as hydrocodone 5/325, #120 for today and 4-week release. 3. We will also refill his naproxen 500 mg he takes this twice a day, quantity 60 with an additional refill. He denies any problems of GI upset and denies any constipation issues as well. 4. The patient is seen in collaboration with Dr. Sandeep Barragan. The patient will return in 2 months. <ELECTRONICALLY SIGNED> By: Marga Paiz 07/26/19 1557 [id number] Marga Paiz /nt
== END ==
LOC: PAIN 06:47
DX: S83.512A Sprain of anterior cruciate ligament of left knee, initial encounter (principal); M25.561 Pain in right knee; G89.29 Other chronic pain; Z86.59 Personal history of other mental and behavioral disorders; Z79.899 Other long term (current) drug therapy; X58.XXXA Exposure to other specified factors, initial encounter; Y93.89 Activity, other specified; Y92.89 Other specified places as the place of occurrence of the external cause; Y99.8 Other external cause status

== ENCOUNTER → 2019-09-19 | Outpatient (CLI) | payer BC ==
[~2019-09-19] VITALS: Ht 193 cm; Wt 101.2 kg
[~2019-09-19] MED LIST changes: +METHADONE10 MG/1 M2 PO
[2019-09-19 09:17] VITALS: BP 125/97
--- NOTE | 2019-09-19 09:21 | NUR ---
Pain Clinic Assessment: 1. History of Osteoarthritis: DENIES History of Rheumatoid Arthritis: DENIES 2. Height: 6 ft. 4 in. 193.0 cm. Weight: 223.0 lb. oz. 101.152 kg. Patient's BMI: 27.2 3. Vital Signs: BP: 125/97 Pulse: 71 Resp: 16 Temp: 02 Sat: 96 ECG Mon: 4. Pain Intensity: 6 5. Fall Risk: Dizziness: N Needs help standing or walking: N Fallen in the last 3 months: N Fall risk comments: 6. Patient on Blood Thinner: None 7. History of Hypertension: N 8. Opioid Therapy greater than 6 weeks: Y Opiate Contract Signed: 12/30/16 9. Risk Assessment Tool Provided: LOW RISK 0/3 10. Functional Assessment Tool: 43/70 11. Recreational Drug Use: Past greater than 3 mos Drug Type: Tobacco Use: Current Every Day Smoker Tobacco Type: Cigarettes Amount or Packs/day: 1 PACK How Many Years: Alcohol Use: No Frequency: Quant:
--- NOTE | 2019-09-20 08:54 | HPC ---
[facility] [place] [address] PAIN MANAGEMENT CONSULTATION Name: TAHIR SMITH Room #: REG [facility] Maya#: [id number] Admission: 09/19/19 Attend Phys: Marga Paiz Discharge: Date of : 83 Report #: [id number] THIS REPORT FOR: cc: KRUNAL - No family physician/PCP FAM - No family physician/PCP Marga Paiz ~ DATE OF SERVICE: 09/19/2019 CHIEF COMPLAINT: Chronic pain in his bilateral knees. HISTORY OF PRESENT ILLNESS: This is a 34-year-old gentleman who returns for a refill of his medications that he uses to help treat his ongoing left knee pain from a meniscus repair. He is attempting to have reconstructive surgery in a few months, but he has been trying to wean off his methadone. He has made great strides in decreasing this dose, currently taking 5 mg every day. His goal is to wean off of that and then schedule his knee surgery. He reports he is going to decrease to 2.5 mg in 1 week. Today, he reports his pain score is 6/10. It is a sharp, throbbing, aching feeling, especially when he is walking and kneeling. He is very active in his job, so that this does increase his pain, but he feels like our medicines of Cordelia and hydrocodone are beneficial in controlling his pain. He does report that he ran out of his hydrocodone a couple days ago due to increased pain, but he did not call the office and ask for more medications. He reports he knew it was his fault and he dealt with his pain accordingly. He denies any problems with constipation or daytime sleepiness as a result of his opioid medications. ALLERGIES: No known drug allergies. CURRENT LIST OF MEDICATIONS: Naproxen 500 mg b.i.d., Cordelia 30 mg daily, hydrocodone 10/325 p.r.n., methadone 5 mg. PQRS: 1. He has osteoarthritis in his knees. Denies any rheumatoid arthritis. 2. Height is 6 feet 4 inches, weight is 223, BMI is 27. 2. Vital signs, blood pressure 125/97, pulse is 71, respirations 16, and oxygen sat is 96. 3. Pain score 6/10. Fall disk: He denies dizziness, does not need help walking or standing, has not fallen in the last 3 months. He is not on any blood thinners or hypertension medicines. Opioid therapy is greater than 6 weeks; therefore, an opioid signed contract is on the chart. Risk assessment tool is low. Functional assessment is 43/70. Recreational drug use in the past. He currently smokes 1 pack of cigarettes a day and does not drink alcohol. According to the prescription monitoring system, the patient is filling appropriately for his medications. He is due to fill those medications today. [address] [address] PAIN MANAGEMENT CONSULTATION Name: TAHIR SMITH [id number] Admission: 09/19/19 Attend Phys: Marga Paiz Discharge: Date of : 83 Report #: [id number] PHYSICAL EXAMINATION: GENERAL: This is alert and orientated, well-developed, well-nourished 34-year-old gentleman who is reporting his pain score at 6/10 today. HEENT: Normocephalic, atraumatic. Extraocular eye muscles are intact. Mucous membranes are moist. MUSCULOSKELETAL: He walks with a slightly antalgic gait. His lower extremity strength judged to be 5/5 with good sensation from L1-S2. He has pain and tenderness in his left knee with no edema noted today. IMPRESSION: 1. Chronic pain secondary to left knee pain, prior reconstruction and recurrent anterior cruciate ligament tear. 2. History of opioid habituation, methadone therapy slowly decreasing. 3. Osteoarthritis. 4. Complex medical management under terms of written opioid agreement. We reviewed the fact that opiate medications are being used to provide analgesia adequate to support activities of daily living, not attempting to achieve a specific pain score on the 0-10 Visual Analog Scale. The current opiate medications are providing sufficient analgesia to allow the patient to participate in activities of daily living. The patient is not exhibiting any aberrant behavior suggestive of drug diversion. The patient is not having any adverse reactions to medications. The patient is not suffering from daytime somnolence or mental acuity changes. The patient is managing opiate-induced constipation with appropriate [id number] agents and dietary considerations. The patient was counseled on concern for caution with operating a motor vehicle while using opiate medications. PLAN: 1. We discussed treatment options with the patient today. The patient reports unfortunately he is still taking methadone, has not been able to schedule his surgery for his knee. He said he has been having difficulty weaning down on his dose, currently taking 5 mg. His plan is to decrease to 2.5 and then decrease again from 2.5 down even lower. His methadone is in liquid form, so it is easier for him to titrate his dose quite low before he weans off. His plan again is still to be off his methadone before his next appointment here, so he can schedule his surgery. 2. We will refill his Cordelia 30 mg, taking one tablet a day and hydrocodone 5/325, #120. These will be refilled for today and [address] Sandeep Barragan as well as his naproxen 500 mg. He denies any GI upset from this medication. 3. According to the CDC guidelines, his morphine mEq per day is 50 MMEs from the medicine that we prescribe slightly higher with his methadone dose. 4. The patient will return in 2 months. At that time, we will repeat a random [facility] [address] [address] PAIN MANAGEMENT CONSULTATION Name: TAHIR SMITH Room #: REG [facility] Trejo#: [id number] Admission: 09/19/19 Attend Phys: Marga Paiz Discharge: Date of : 83 Report #: [id number] urine drug screen on this patient. The patient is seen today in collaboration with Dr. Sandeep Barragan. <ELECTRONICALLY SIGNED> By: Marga Paiz 09/20/19 0854 [id number] Marga Paiz /nt
== END ==
LOC: PAIN 06:39
DX: M25.561 Pain in right knee (principal); M25.562 Pain in left knee; G89.29 Other chronic pain; M19.90 Unspecified osteoarthritis, unspecified site; Z79.899 Other long term (current) drug therapy; Z86.59 Personal history of other mental and behavioral disorders

== ENCOUNTER → 2019-11-14 | Outpatient (CLI) | payer BC ==
[~2019-11-14] VITALS: Ht 190.5 cm; Wt 105.8 kg
[2019-11-14 09:03] VITALS: BP 140/70
--- NOTE | 2019-11-14 09:19 | NUR ---
Pain Clinic Assessment: 1. History of Osteoarthritis: DENIES History of Rheumatoid Arthritis: DENIES 2. Height: 6 ft. 3 in. 190.5 cm. Weight: 233.2 lb. oz. 105.779 kg. Patient's BMI: 29.1 3. Vital Signs: BP: 140/70 Pulse: 78 Resp: 14 Temp: 02 Sat: 97 ECG Mon: 4. Pain Intensity: 5 5. Fall Risk: Dizziness: N Needs help standing or walking: N Fallen in the last 3 months: N Fall risk comments: 6. Patient on Blood Thinner: None 7. History of Hypertension: N 8. Opioid Therapy greater than 6 weeks: Y Opiate Contract Signed: 12/30/16 9. Risk Assessment Tool Provided: LOW RISK 0/3 10. Functional Assessment Tool: 11. Recreational Drug Use: Past greater than 3 mos Drug Type: Tobacco Use: Current Every Day Smoker Tobacco Type: Cigarettes Amount or Packs/day: < 1/2 How Many Years: 25 Alcohol Use: No Frequency: Quant:
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
== END ==
LOC: PAIN 07:37
DX: M25.562 Pain in left knee (principal); F11.20 Opioid dependence, uncomplicated; R07.9 Chest pain, unspecified; Z79.899 Other long term (current) drug therapy

== ENCOUNTER → 2019-12-28 | Outpatient (CLI) | payer BC ==
[~2019-12-28] VITALS: Ht 190.5 cm; Wt 105.7 kg
[~2019-12-28] MED LIST changes: +MS CONTIN15 MG PO
[2019-12-28 12:20] VITALS: BP 148/92
--- NOTE | 2019-12-28 12:38 | NUR ---
Pain Clinic Assessment: 1. History of Osteoarthritis: DENIES History of Rheumatoid Arthritis: DENIES 2. Height: 6 ft. 3 in. 190.5 cm. Weight: 233.0 lb. oz. 105.688 kg. Patient's BMI: 29.1 3. Vital Signs: BP: 148/92 Pulse: 81 Resp: 16 Temp: 02 Sat: 97 ECG Mon: 4. Pain Intensity: 6 5. Fall Risk: Dizziness: N Needs help standing or walking: N Fallen in the last 3 months: N Fall risk comments: 6. Patient on Blood Thinner: None 7. History of Hypertension: N 8. Opioid Therapy greater than 6 weeks: Y Opiate Contract Signed: 12/30/16 9. Risk Assessment Tool Provided: LOW RISK 0/3 10. Functional Assessment Tool: 43/ 11. Recreational Drug Use: Past greater than 3 mos Drug Type: Tobacco Use: Current Every Day Smoker Tobacco Type: Cigarettes Amount or Packs/day: How Many Years: Alcohol Use: No Frequency: Quant:
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
== END ==
LOC: PAIN 06:50
PROVIDERS: ATTEND Anesthesiology Pain Medicine
DX: M25.562 Pain in left knee (principal); R07.9 Chest pain, unspecified; F11.20 Opioid dependence, uncomplicated; Z79.899 Other long term (current) drug therapy

== ENCOUNTER → 2020-02-01 | Outpatient (CLI) | payer BC ==
[~2020-02-01] VITALS: Ht 190.5 cm; Wt 101.8 kg
[2020-02-01 12:57] VITALS: BP 117/68
--- NOTE | 2020-02-01 13:08 | NUR ---
Pain Clinic Assessment: 1. History of Osteoarthritis: Left Lower Extremity History of Rheumatoid Arthritis: DENIES 2. Height: 6 ft. 3 in. 190.5 cm. Weight: 224.4 lb. oz. 101.787 kg. Patient's BMI: 28.0 3. Vital Signs: BP: 117/68 Pulse: 68 Resp: 16 Temp: 02 Sat: 97 ECG Mon: 4. Pain Intensity: 4-5 5. Fall Risk: Dizziness: N Needs help standing or walking: N Fallen in the last 3 months: N Fall risk comments: 6. Patient on Blood Thinner: None 7. History of Hypertension: N 8. Opioid Therapy greater than 6 weeks: Y Opiate Contract Signed: 12/30/16 9. Risk Assessment Tool Provided: LOW RISK 0/3 10. Functional Assessment Tool: 11. Recreational Drug Use: Past greater than 3 mos Drug Type: Tobacco Use: Current Every Day Smoker Tobacco Type: Cigarettes Amount or Packs/day: 1 How Many Years: Alcohol Use: No Frequency: Quant:
--- NOTE | 2020-02-18 20:39 | HPC ---
[facility] [place] [address] [place] [address] PAIN MANAGEMENT CONSULTATION Name: TAHIR SMITH Room #: REG [facility] Ino#: [id number] Admission: 02/01/20 Attend Phys: Keven Barragan MD Discharge: Date of : 83 Report #: [id number] THIS REPORT FOR: cc: FAM - Family physician unknown FAM - Family physician unknown Keven Barragan MD ~ CC: KRUNAL Barragan DATE OF SERVICE: 02/01/2020 CHIEF COMPLAINT: Left knee pain. HISTORY: The patient is a 34-year-old gentleman who has been followed in the pain clinic because of chronic knee pain. He has been experiencing knee pain for quite some time. He has suffered an ACL rupture in his knee. His pain continues to be problematic in the left knee. He would like to have a meniscus repair. The COVID-19 pandemic has been problematic. It has caused some concerns in that he is the father of 4 kids. His about a year ago. He has returned today for renewal of his medications. ALLERGIES: No known drug allergies. CURRENT MEDICATIONS: Morphine sulfate 30 mg daily, hydrocodone 5/325 one p.o. every 4-6 hours, Naprosyn 500 mg, and methadone 30 mg daily. PAIN CLINIC ASSESSMENT/PQRS: 1. History of osteoarthritis involving his left knee. Denies history of rheumatoid arthritis. 2. Height 6 feet 3 inches, weight 224 pounds, BMI is 28.0. 3. Vital signs: Blood pressure 117/67, pulse 68, respiratory rate 16, room air saturation 97%. 4. Pain intensity 5/10. 5. Fall history: The patient has not fallen in the last 3 months. 6. Blood thinner. The patient is not on a blood thinning medication. 7. Hypertension. The patient is not being treated for hypertension. 8. Opioids greater than 6 weeks. The patient receives medication from the pain clinic. 9. Risk assessment tool, low for opioid use. 10. Functional assessment tool 43/70. 11. Recreational drug use. The patient denies. 12. Tobacco: The patient smokes daily 1 pack of cigarettes per day. 13. Alcohol. Denies use of alcoholic beverages. PHYSICAL EXAMINATION: GENERAL: The patient is a well-developed, well-nour[place] [address] PAIN MANAGEMENT CONSULTATION Name: TAHIR SMITH Stacie Room #: REG [facility]#: [id number] Admission: 02/01/20 Attend Phys: Keven Barragan MD Discharge: Date of : 83 Report #: [id number] his stated age. He is alert and oriented x 3. His affect is appropriate. Speech is fluent. HEENT: Normocephalic, atraumatic. Extraocular eye muscles intact. Sclerae nonicteric. Mucous membranes are moist. NECK: Without adenopathy or JVD. The patient is wearing a mask. HEART: Regular rate. ABDOMEN: Nontender. LUNGS: Clear. EXTREMITIES: Upper extremity muscle strength judged to be 5/5 for the major muscle groups in the upper extremity. The patient has pain and discomfort in the left leg with discomfort of the left knee with movement because of the disrupted ACL. IMPRESSION: 1. Chronic pain secondary to pain in the left knee, status post ruptured anterior cruciate ligament left side. 2. Complex medical management to help control pain using opioids. 3. History of opioid habituation, methadone maintenance for control of pain via the pain clinic. 4. History -- 4 children, ages 16, 15, 12, and 11; about year ago. 5. Chest pain. RECOMMENDATIONS: We discussed treatment options with the patient. At this juncture, we will continue with his medications. A script for his medications has been written. The patient will continue with the medication as prescribed. He will continue to monitor his medication. He will keep his medications in a guarded area. He is aware that given he has children medications must be kept in a locked environment. The patient has been given a script for Narcan nasal spray. We would like to thank you for letting us participate in his care. We hope he continues to improve. <ELECTRONICALLY SIGNED> By: Keven Barragan MD 02/18/20 2039 [id number] Keven Barragan MD /[facility]
== END ==
LOC: PAIN 06:53
PROVIDERS: ATTEND Anesthesiology Pain Medicine
DX: G89.29 Other chronic pain (principal); R07.89 Other chest pain; M25.562 Pain in left knee; Z79.891 Long term (current) use of opiate analgesic

== ENCOUNTER → 2020-03-28 | Outpatient (CLI) | payer BC ==
[~2020-03-28] VITALS: Ht 190.5 cm; Wt 101.6 kg
[2020-03-28 10:12] VITALS: BP 128/60
--- NOTE | 2020-03-28 10:20 | NUR ---
Pain Clinic Assessment: 1. History of Osteoarthritis: Left Lower Extremity History of Rheumatoid Arthritis: DENIES 2. Height: 6 ft. 3 in. 190.5 cm. Weight: 224.0 lb. oz. 101.606 kg. Patient's BMI: 28.0 3. Vital Signs: BP: 128/60 Pulse: 75 Resp: 14 Temp: 02 Sat: 96 ECG Mon: 4. Pain Intensity: 6 5. Fall Risk: Dizziness: N Needs help standing or walking: N Fallen in the last 3 months: N Fall risk comments: 6. Patient on Blood Thinner: None 7. History of Hypertension: N 8. Opioid Therapy greater than 6 weeks: Y Opiate Contract Signed: 12/30/16 9. Risk Assessment Tool Provided: LOW RISK 0/3 10. Functional Assessment Tool: 11. Recreational Drug Use: Past greater than 3 mos Drug Type: Tobacco Use: Current Every Day Smoker Tobacco Type: Cigarettes Amount or Packs/day: 1 How Many Years: Alcohol Use: No Frequency: Quant:
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
== END ==
LOC: PAIN 06:52
PROVIDERS: ATTEND Anesthesiology Pain Medicine
DX: S83.8X2A Sprain of other specified parts of left knee, initial encounter (principal); X58.XXXA Exposure to other specified factors, initial encounter; Y93.89 Activity, other specified; Y92.89 Other specified places as the place of occurrence of the external cause; Y99.8 Other external cause status; F11.90 Opioid use, unspecified, uncomplicated

== ENCOUNTER → 2020-05-23 | Outpatient (CLI) | payer BC ==
--- NOTE | ~2020-05-23 | HPC ---
[facility] [address] [address] PAIN MANAGEMENT CONSULTATION Name: TAHIR SMITH Room #: REG [facility] Ino#: [id number] Admission: 05/23/20 Attend Phys: Keven Barragan MD Discharge: Date of : 83 Report #: [id number] THIS REPORT FOR: cc: KRUNAL - Family physician unknown FAM - Family physician unknown Keven Barragan MD ~ CC: KRUNAL Barragan DATE OF SERVICE: 05/23/2020 CHIEF COMPLAINT: Continued knee pain, medication is helpful. HISTORY: The patient is a 35-year-old gentleman who has a history of chronic knee pain. As you may recall, he ruptured his ACL in the past. He continues to work at [employer]. The COVID-19 pandemic has made it difficult for him to undergo surgery. He does have 4 children. His a few years ago. He remains the primary caregiver. He had more bad news. His sister was involved in a car accident. She lost her leg. Also, has problems with his father who is in a hospital in [place] with COVID. He would like to have his medications renewed. ALLERGIES: No known drug allergies. CURRENT MEDICATIONS: Morphine sulfate 30 mg, hydrocodone 5/325 one p.o. every 4-6 hours, Naprosyn 500 mg, methadone 30 mg daily. PAIN CLINIC ASSESSMENT AND PQRS: 1. The patient has left lower extremity pain. He is not being treated for rheumatoid arthritis. 2. Height 6 feet 3 inches, weight 224 pounds, BMI is 28. 3. Vitals, blood pressure 130/65, pulse 75, respiratory rate 14, room air saturation 96%. 4. Pain intensity 01/24. 5. Fall history: The patient has not fallen in the last 3 months. 6. Blood thinner: The patient is not on a blood thinning medication. 7. Hypertension. 8. Opioids: The patient receives medication from the pain clinic. 9. Risk assessment tool: Low for opioid use. 10. Functional assessment tool: 43. 11. Recreational drug use: The patient denies. 12. Tobacco: The patient smokes 1 pack of cigarettes per day. 13. Alcohol. The patient denies frequent use of alcoholic beverages. PHYSICAL EXAMINATION: GENERAL: The patient is a well-developed, well-nourished white male. [address] [address] PAIN MANAGEMENT CONSULTATION Name: TAHIR SMITH Room #: REG [facility]#: [id number] Admission: 05/23/20 Attend Phys: Keven Barragan MD Discharge: Date of : 83 Report #: [id number] his stated age. He is alert and oriented x 3. His affect is dressed. He has quite a number of problems going on in the family. HEENT: Normocephalic, atraumatic. Extraocular eye muscles intact. Sclerae nonicteric. Mucous membranes are moist. NECK: Without adenopathy or JVD. HEART: Regular rate. ABDOMEN: Nontender. LUNGS: Clear. EXTREMITIES: Upper extremity muscle strength judged to be 5/5 for the major muscle groups. Lower extremity, the patient has pain and discomfort in the left knee because of disrupted ACL. IMPRESSION: 1. Chronic pain secondary to ruptured anterior cruciate ligament. 2. Complex medical management used to help control pain using opioids. 3. History of opioid habituation, methadone tolerance control via the pain medications provided via the pain clinic. 4. History of 4 children, 16, 15, 12 and 11, cared for since his . 5. Sister who recently had her leg amputated. 6. Father who is in the hospital with [facility] in [place]. RECOMMENDATIONS: We will continue with the patient's medications. His medications have been rewritten. He states that he is able to use his medications and work well at [employer]. This is not complicating his sensorium. A script for his medications has been provided. The patient has been provided with naloxone in the event of an overdose. We would like to thank you for letting us participate in his care. We hope he continues to improve. By: [id number] Keven Barragan MD /[facility]
--- NOTE | 2020-05-23 09:29 | NUR ---
Pain Clinic Assessment: 1. History of Osteoarthritis: Left Lower Extremity History of Rheumatoid Arthritis: DENIES 2. Height: ft. in. cm. Weight: lb. oz. kg. Patient's BMI: 3. Vital Signs: BP: Pulse: Resp: Temp: 02 Sat: ECG Mon: 4. Pain Intensity: 6 5. Fall Risk: Dizziness: N Needs help standing or walking: N Fallen in the last 3 months: N Fall risk comments: 6. Patient on Blood Thinner: None 7. History of Hypertension: N 8. Opioid Therapy greater than 6 weeks: Y Opiate Contract Signed: 12/30/16 9. Risk Assessment Tool Provided: LOW RISK 0/3 10. Functional Assessment Tool: 43/70 11. Recreational Drug Use: Past greater than 3 mos Drug Type: Tobacco Use: Current Every Day Smoker Tobacco Type: Amount or Packs/day: How Many Years: Alcohol Use: No Frequency: Quant:
== END ==
LOC: PAIN 06:54
PROVIDERS: ATTEND Anesthesiology Pain Medicine
DX: M25.569 Pain in unspecified knee (principal); F11.20 Opioid dependence, uncomplicated; Z79.899 Other long term (current) drug therapy

== ENCOUNTER → 2020-07-16 | Outpatient (CLI) | payer BC ==
[~2020-07-16] VITALS: Ht 193 cm; Wt 101.9 kg
[~2020-07-16] MED LIST changes: +METHADONE HCL5 MG PO; +NAPROSYN500 M1 PO
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
[2020-07-16 09:35] VITALS: BP 113/85
--- NOTE | 2020-07-16 09:52 | NUR ---
Pain Clinic Assessment: 1. History of Osteoarthritis: Left Lower Extremity History of Rheumatoid Arthritis: DENIES 2. Height: 6 ft. 4 in. 193.0 cm. Weight: 224.6 lb. oz. 101.878 kg. Patient's BMI: 27.4 3. Vital Signs: BP: 113/85 Pulse: 72 Resp: 16 Temp: 02 Sat: 100 ECG Mon: 4. Pain Intensity: 6-7 5. Fall Risk: Dizziness: N Needs help standing or walking: N Fallen in the last 3 months: N Fall risk comments: 6. Patient on Blood Thinner: None 7. History of Hypertension: N 8. Opioid Therapy greater than 6 weeks: Y Opiate Contract Signed: 12/30/16 9. Risk Assessment Tool Provided: LOW RISK 0/3 10. Functional Assessment Tool: 11. Recreational Drug Use: Past greater than 3 mos Drug Type: Tobacco Use: Current Every Day Smoker Tobacco Type: Cigarettes Amount or Packs/day: 1 How Many Years: Alcohol Use: No Frequency: Quant:
== END ==
LOC: PAIN 06:42
PROVIDERS: ATTEND Clinical Nurse Specialist Adult Health
DX: M54.5 Low back pain (principal); G89.29 Other chronic pain; M25.569 Pain in unspecified knee; F17.200 Nicotine dependence, unspecified, uncomplicated; Z79.899 Other long term (current) drug therapy

== ENCOUNTER → 2020-09-12 | Outpatient (CLI) | payer BC ==
[~2020-09-12] VITALS: Ht 193 cm; Wt 107.4 kg
[~2020-09-12] MED LIST changes: +NICODERM CQ1 EAC1 TRANSDERM; +NICOTINE TRANSD14 M1 TRANSDERM; +NICOTINE TRANSD21 M1 TOP
[2020-09-12 08:24] VITALS: BP 121/61
--- NOTE | 2020-09-12 08:34 | NUR ---
Pain Clinic Assessment: 1. History of Osteoarthritis: Left Lower Extremity History of Rheumatoid Arthritis: DENIES 2. Height: 6 ft. 4 in. 193.0 cm. Weight: 236.8 lb. oz. 107.412 kg. Patient's BMI: 28.8 3. Vital Signs: BP: 121/61 Pulse: 74 Resp: 16 Temp: 02 Sat: 98 ECG Mon: 4. Pain Intensity: 7 5. Fall Risk: Dizziness: N Needs help standing or walking: N Fallen in the last 3 months: N Fall risk comments: 6. Patient on Blood Thinner: None 7. History of Hypertension: N 8. Opioid Therapy greater than 6 weeks: Y Opiate Contract Signed: 12/30/16 9. Risk Assessment Tool Provided: LOW RISK 0/3 10. Functional Assessment Tool: 43 11. Recreational Drug Use: Past greater than 3 mos Drug Type: Tobacco Use: Current Every Day Smoker Tobacco Type: Cigarettes Amount or Packs/day: 1 How Many Years: Alcohol Use: No Frequency: Quant:
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
== END ==
LOC: PAIN 06:57
PROVIDERS: ATTEND Clinical Nurse Specialist Adult Health
DX: Z76.0 Encounter for issue of repeat prescription (principal); G89.29 Other chronic pain; Z79.899 Other long term (current) drug therapy; Z79.891 Long term (current) use of opiate analgesic

== ENCOUNTER → 2020-11-05 | Outpatient (CLI) | payer BC ==
[~2020-11-05] VITALS: Ht 193 cm; Wt 110.9 kg
[~2020-11-05] MED LIST changes: +NORCO7.5 PO
[2020-11-05 12:28] VITALS: BP 161/93
--- NOTE | 2020-11-05 12:48 | NUR ---
Pain Clinic Assessment: 1. History of Osteoarthritis: Left Lower Extremity History of Rheumatoid Arthritis: DENIES 2. Height: 6 ft. 4 in. 193.0 cm. Weight: 244.4 lb. oz. 110.859 kg. Patient's BMI: 29.8 3. Vital Signs: BP: 161/93 Pulse: 75 Resp: 16 Temp: 02 Sat: 100 ECG Mon: 4. Pain Intensity: 7 5. Fall Risk: Dizziness: N Needs help standing or walking: N Fallen in the last 3 months: N Fall risk comments: 6. Patient on Blood Thinner: None 7. History of Hypertension: N 8. Opioid Therapy greater than 6 weeks: Y Opiate Contract Signed: 12/30/16 9. Risk Assessment Tool Provided: LOW RISK 0/3 10. Functional Assessment Tool: 11. Recreational Drug Use: Past greater than 3 mos Drug Type: Tobacco Use: Current Every Day Smoker Tobacco Type: Amount or Packs/day: 1/4 PK /DAY How Many Years: Alcohol Use: No Frequency: Quant:
== END ==
LOC: PAIN 12:09
PROVIDERS: ATTEND Anesthesiology Pain Medicine
DX: Z76.0 Encounter for issue of repeat prescription (principal); M25.562 Pain in left knee; G89.29 Other chronic pain; F17.200 Nicotine dependence, unspecified, uncomplicated; Z79.891 Long term (current) use of opiate analgesic; Z79.899 Other long term (current) drug therapy

== ENCOUNTER → 2020-12-31 | Outpatient (CLI) | payer BC ==
[~2020-12-31] VITALS: Ht 193 cm; Wt 109.7 kg
[2020-12-31 10:47] VITALS: BP 124/73
--- NOTE | 2020-12-31 11:19 | NUR ---
Pain Clinic Assessment: 1. History of Osteoarthritis: Left Lower Extremity History of Rheumatoid Arthritis: DENIES 2. Height: 6 ft. 4 in. 193.0 cm. Weight: 241.8 lb. oz. 109.680 kg. Patient's BMI: 29.4 3. Vital Signs: BP: 124/73 Pulse: 70 Resp: 16 Temp: 02 Sat: 98 ECG Mon: 4. Pain Intensity: 7 5. Fall Risk: Dizziness: N Needs help standing or walking: N Fallen in the last 3 months: N Fall risk comments: 6. Patient on Blood Thinner: None 7. History of Hypertension: N 8. Opioid Therapy greater than 6 weeks: Y Opiate Contract Signed: 12/30/16 9. Risk Assessment Tool Provided: LOW RISK 0 10. Functional Assessment Tool: 11. Recreational Drug Use: Past greater than 3 mos Drug Type: Tobacco Use: Current Every Day Smoker Tobacco Type: Cigarettes Amount or Packs/day: 1/2 PACK How Many Years: Alcohol Use: No Frequency: Quant:
== END ==
LOC: PAIN 07:04
PROVIDERS: ATTEND Anesthesiology Pain Medicine
DX: S83.512A Sprain of anterior cruciate ligament of left knee, initial encounter (principal); G89.29 Other chronic pain; Z79.891 Long term (current) use of opiate analgesic; Z86.16 Personal history of COVID-19; Z79.899 Other long term (current) drug therapy; X58.XXXD Exposure to other specified factors, subsequent encounter

== ENCOUNTER → 2021-02-25 | Outpatient (CLI) | payer BC ==
[~2021-02-25] VITALS: Ht 193 cm; Wt 106.1 kg
[2021-02-25 08:35] VITALS: BP 135/80
--- NOTE | 2021-02-25 08:46 | NUR ---
Pain Clinic Assessment: 1. History of Osteoarthritis: Left Lower Extremity History of Rheumatoid Arthritis: DENIES 2. Height: 6 ft. 4 in. 193.0 cm. Weight: 233.8 lb. oz. 106.051 kg. Patient's BMI: 28.5 3. Vital Signs: BP: 135/80 Pulse: 79 Resp: 14 Temp: 02 Sat: 98 ECG Mon: 4. Pain Intensity: 6 TO 10 5. Fall Risk: Dizziness: N Needs help standing or walking: N Fallen in the last 3 months: N Fall risk comments: 6. Patient on Blood Thinner: None 7. History of Hypertension: N 8. Opioid Therapy greater than 6 weeks: Y Opiate Contract Signed: 12/30/16 9. Risk Assessment Tool Provided: LOW RISK 0 10. Functional Assessment Tool: 11. Recreational Drug Use: Past greater than 3 mos Drug Type: Tobacco Use: Current Every Day Smoker Tobacco Type: Cigarettes Amount or Packs/day: 1/2 PK/D How Many Years: Alcohol Use: No Frequency: Quant:
== END ==
LOC: PAIN 06:53
PROVIDERS: ATTEND Anesthesiology Pain Medicine
DX: Z76.0 Encounter for issue of repeat prescription (principal); R42 Dizziness and giddiness; M25.562 Pain in left knee; G89.29 Other chronic pain; F17.210 Nicotine dependence, cigarettes, uncomplicated; F32.9 Major depressive disorder, single episode, unspecified; Z79.899 Other long term (current) drug therapy; Z79.891 Long term (current) use of opiate analgesic

== ENCOUNTER → 2021-04-22 | Outpatient (CLI) | payer BC ==
[~2021-04-22] VITALS: Ht 193 cm; Wt 104.3 kg
[~2021-04-22] MED LIST changes: +NICODERM CQ1 EAC2 TRANSDERM
[2021-04-22 08:36] VITALS: BP 150/88
--- NOTE | 2021-04-22 08:47 | NUR ---
Pain Clinic Assessment: 1. History of Osteoarthritis: Left Lower Extremity History of Rheumatoid Arthritis: DENIES 2. Height: 6 ft. 4 in. 193.0 cm. Weight: 230.0 lb. oz. 104.328 kg. Patient's BMI: 28.0 3. Vital Signs: BP: 150/88 Pulse: 80 Resp: 16 Temp: 02 Sat: 98 ECG Mon: 4. Pain Intensity: 7 5. Fall Risk: Dizziness: N Needs help standing or walking: N Fallen in the last 3 months: N Fall risk comments: 6. Patient on Blood Thinner: None 7. History of Hypertension: N 8. Opioid Therapy greater than 6 weeks: Y Opiate Contract Signed: 12/30/16 9. Risk Assessment Tool Provided: LOW RISK 0 10. Functional Assessment Tool: 11. Recreational Drug Use: Past greater than 3 mos Drug Type: Tobacco Use: Current Every Day Smoker Tobacco Type: Cigarettes Amount or Packs/day: How Many Years: Alcohol Use: No Frequency: Quant:
== END ==
LOC: PAIN 06:48
PROVIDERS: ATTEND Anesthesiology Pain Medicine
DX: G89.29 Other chronic pain (principal); M25.562 Pain in left knee; Z98.890 Other specified postprocedural states; Z79.899 Other long term (current) drug therapy

== ENCOUNTER → 2021-06-17 | Outpatient (CLI) | payer BC ==
[~2021-06-17] VITALS: Ht 193 cm; Wt 99.1 kg
[2021-06-17 08:44] VITALS: BP 119/78
--- NOTE | 2021-06-17 08:54 | NUR ---
Pain Clinic Assessment: 1. History of Osteoarthritis: Left Lower Extremity History of Rheumatoid Arthritis: DENIES 2. Height: 6 ft. 4 in. 193.0 cm. Weight: 218.4 lb. oz. 99.066 kg. Patient's BMI: 26.6 3. Vital Signs: BP: 119/78 Pulse: 70 Resp: 16 Temp: 02 Sat: 100 ECG Mon: 4. Pain Intensity: 8 5. Fall Risk: Dizziness: N Needs help standing or walking: N Fallen in the last 3 months: N Fall risk comments: 6. Patient on Blood Thinner: None 7. History of Hypertension: N 8. Opioid Therapy greater than 6 weeks: Y Opiate Contract Signed: 12/30/16 9. Risk Assessment Tool Provided: LOW RISK 0 10. Functional Assessment Tool: 11. Recreational Drug Use: Past greater than 3 mos Drug Type: Tobacco Use: Current Every Day Smoker Tobacco Type: Cigarettes Amount or Packs/day: 5 CIGGS How Many Years: Alcohol Use: No Frequency: Quant:
== END ==
LOC: PAIN 06:59
PROVIDERS: ATTEND Anesthesiology Pain Medicine
DX: S81.012A Laceration without foreign body, left knee, initial encounter (principal); G89.29 Other chronic pain; M25.562 Pain in left knee; M19.09 Primary osteoarthritis, other specified site; F17.200 Nicotine dependence, unspecified, uncomplicated; X58.XXXA Exposure to other specified factors, initial encounter; Y93.89 Activity, other specified; Z79.891 Long term (current) use of opiate analgesic; Z79.899 Other long term (current) drug therapy; Y92.89 Other specified places as the place of occurrence of the external cause; Y99.8 Other external cause status

== ENCOUNTER → 2021-08-12 | Outpatient (CLI) | payer BC ==
[~2021-08-12] VITALS: Ht 193 cm; Wt 100.5 kg
[2021-08-12 09:11] VITALS: BP 107/65
--- NOTE | 2021-08-12 09:27 | NUR ---
Pain Clinic Assessment: 1. History of Osteoarthritis: Left Lower Extremity History of Rheumatoid Arthritis: DENIES 2. Height: 6 ft. 4 in. 193.0 cm. Weight: 221.6 lb. oz. 100.517 kg. Patient's BMI: 27.0 3. Vital Signs: BP: 107/65 Pulse: 70 Resp: 14 Temp: 02 Sat: 98 ECG Mon: 4. Pain Intensity: 6 5. Fall Risk: Dizziness: N Needs help standing or walking: N Fallen in the last 3 months: N Fall risk comments: 6. Patient on Blood Thinner: None 7. History of Hypertension: N 8. Opioid Therapy greater than 6 weeks: Y Opiate Contract Signed: 12/30/16 9. Risk Assessment Tool Provided: LOW RISK 0 10. Functional Assessment Tool: 11. Recreational Drug Use: Past greater than 3 mos Drug Type: Tobacco Use: Current Every Day Smoker Tobacco Type: Cigarettes Amount or Packs/day: 5 CIGGS How Many Years: Alcohol Use: No Frequency: Quant:
== END ==
LOC: PAIN 08:53
PROVIDERS: ATTEND Anesthesiology Pain Medicine
DX: G89.29 Other chronic pain (principal); M25.562 Pain in left knee; F17.200 Nicotine dependence, unspecified, uncomplicated; Z79.899 Other long term (current) drug therapy